=== PATIENT | female | born 1935 | race Asian ===

== ENCOUNTER → 2016-09-03 | Outpatient (CLI) | payer MEDICARE, OTHER ==
[~2016-09-03] MED LIST: AMLO-512 PO; ASPI81TA42 PO; ATOR40TA28 PO; BENZ-26 PO; CARV12 PO; CARV6 PO; CLOP75 PO; COLC0.6T69 PO; HYDR200T4 PO; IPRA4AER IH; MECL-111 PO; MULT-68 PO; NITR.4 SL; PANT40TA25 PO; TIOT185 IH; VALS160T2 PO
== END | disposition home or self-care (01) ==
LOC: LABPV 08:25
PROVIDERS: ATTEND Internal Medicine Cardiovascular Disease
DX: I11.0 Hypertensive heart disease with heart failure (principal); I50.9 Heart failure, unspecified

== ENCOUNTER → 2016-09-06 | Outpatient (CLI) | payer MEDICARE, OTHER | END | disposition home or self-care (01) | LOC: RADPV 12:49 | PROVIDERS: ATTEND Internal Medicine | DX: M17.11 Unilateral primary osteoarthritis, right knee (principal); I70.0 Atherosclerosis of aorta | CPT/HCPCS: 71020 ==

== ENCOUNTER 2016-10-20 10:45 | Inpatient (IN) | payer MEDICARE, OTHER ==
[~2016-10-20] VITALS: Ht 160 cm; Wt 79.8 kg
[~2016-10-20 10:45] MED LIST changes: -CARV12 PO; -PANT40TA25 PO
[2016-10-20 11:19] LABS: BASOPHILS # (AUTO) 0.13 K/uL (0.00-0.20); BASOPHILS % (AUTO) 1.2 % (0.0-2.0); EOSINOPHILS # (AUTO) 0.15 K/uL (0.00-0.70); EOSINOPHILS % (AUTO) 1.39 % (1.0-6.0); HEMATOCRIT 38.1 % (36-46); HEMOGLOBIN 12.8 g/dL (12.0-16.0); LYMPHOCYTES # (AUTO) 2.5 K/uL (1.0-4.8); LYMPHOCYTES % (AUTO) 22.4 % (22.0-44.0); MEAN CORPUSCULAR HEMOGLOBIN 30.7 pg (26.0-34.0); MEAN CORPUSCULAR HGB CONC 33.6 G/dL (31.0-37.0); MEAN CORPUSCULAR VOLUME 92 fL (80-100); MONOCYTES # (AUTO) 0.7 K/uL (0.1-1.0); MONOCYTES % (AUTO) 6.1 % (2.0-9.0); NEUTROPHILS # (AUTO) 7.5 K/uL (1.8-7.7); NEUTROPHILS % (AUTO) 68.9 % (40.0-70.0); PLATELET COUNT (AUTO) 203 K/uL (150-450); RED BLOOD CELL COUNT(AUTO) 4.17 MIL/uL (4.00-5.20); RED CELL DISTRIBUTION WIDTH 14.9 % (11.5-14.5); WHITE BLOOD COUNT (AUTO) 10.9 K/uL (4.5-11.0)
[2016-10-20 11:34] LABS: CALCIUM, TOTAL 8.5 mg/dL (8.8-10.5); CREATININE 2.02 mg/dL (0.60-1.30); POTASSIUM 5.3 mmol/L (3.5-5.1)
[2016-10-20 11:37] LABS: PROTHROMBIN TIME 10.4 SEC (9.4-11.6)
[2016-10-20 11:39] LABS: ALBUMIN 3.4 g/dL (3.4-5.0); BILIRUBIN,TOTAL 0.5 mg/dL (0.1-1.0); TOTAL PROTEIN, SERUM 7.8 g/dL (6.4-8.2)
[2016-10-20 11:46] LABS: APPEARANCE,URINE CLEAR (CLEAR); GLUCOSE, URINE (UA) NEGATIVE (NEGATIVE); KETONES,URINE NEGATIVE (NEGATIVE); LEUKOCYTE ESTERASE ,URINE NEGATIVE (NEGATIVE); OCCULT BLOOD,URINE NEGATIVE (NEGATIVE); PROTEIN,URINE SEE CONFIRM (NEGATIVE)
[2016-10-20 11:47] LABS: ADD UA MICROSCOPIC YES
[2016-10-20 11:49] LABS: SULFOSALICYLIC ACID,URINE 3+ (Negative)
[2016-10-20 11:50] LABS: RBC,URINE None Seen /HPF (0-2)
[2016-10-20 11:51] LABS: RENAL EPITHELIAL CELLS,URINE Few /LPF (None Seen); SQUAMOUS EPITHELIAL CELL,UR Few /LPF (None Seen)
[2016-10-20] MEDS ORDERED: CARV12 PO (12:21)
[2016-10-20] MEDS ORDERED: NITROGLYCERIN 0.4 MG SUBLINGUAL TABLET #25 SL ONE (12:30)
[2016-10-20] MEDS ORDERED: NITROGLYCERIN 2% (1 GM=INCH) PACKET TP ONE (12:30)
[2016-10-20] MEDS ORDERED: ASPIRIN 81 MG CHEWABLE TABLET PO ONE (12:30)
[2016-10-20] MEDS ORDERED: ACETAMINOPHEN 325 MG TABLET PO PRN (14:30)
[2016-10-20] MEDS ORDERED: 0.9% SODIUM CHLORIDE 10 ML SYRINGE IVP PRN (14:30)
[2016-10-20 21:30] VITALS: BP 159/83
[2016-10-20] MEDS ORDERED: NITROGLYCERIN 0.4 MG SUBLINGUAL TABLET #25 SL PRN (21:45)
[2016-10-20] MEDS ORDERED: MORPHINE SULFATE 2 MG/ML SYRINGE IVP PRN (21:45)
[2016-10-20] MEDS ORDERED: MECLIZINE HCL 25 MG TABLET PO PRN (21:45)
[2016-10-20] MEDS ORDERED: VALSARTAN 160 MG TABLET PO SCH (21:45)
[2016-10-20] MEDS ORDERED: COLCHICINE 0.6 MG TABLET PO PRN (21:45)
[2016-10-20] MEDS ORDERED: ALBUTEROL SULFATE/IPRATROPIUM 100-20 MCG/SPRAY 4 GM INHALER IH PRN (21:45)
[2016-10-20] MEDS ORDERED: NITROGLYCERIN 2% (1 GM=INCH) PACKET TP PRN (21:45)
[2016-10-20] MEDS: ATORVASTATIN CALCIUM 40 MG TABLET PO SCH (22:18)
[2016-10-20] MEDS: CARVEDILOL 12.5 MG TABLET PO SCH (22:18)
[2016-10-20] MEDS: HYDROXYCHLOROQUINE SULFATE 200 MG TABLET PO SCH (22:18)
[2016-10-20 23:54] VITALS: BP 130/56
[2016-10-21] MEDS ORDERED: INFLUENZA VIRUS VACCINE QVS 2016-17 (3YR+)/PF 60 MCG/0.5 ML SYRINGE IM ONE (01:00)
[2016-10-21 04:31] VITALS: BP 132/58
[2016-10-21 04:51] LABS: BASOPHILS # (AUTO) 0.03 K/uL (0.00-0.20); BASOPHILS % (AUTO) 0.3 % (0.0-2.0); EOSINOPHILS # (AUTO) 0.17 K/uL (0.00-0.70); EOSINOPHILS % (AUTO) 1.74 % (1.0-6.0); HEMATOCRIT 33.4 % (36-46); HEMOGLOBIN 11.3 g/dL (12.0-16.0); LYMPHOCYTES # (AUTO) 2.5 K/uL (1.0-4.8); LYMPHOCYTES % (AUTO) 25.7 % (22.0-44.0); MEAN CORPUSCULAR HEMOGLOBIN 30.9 pg (26.0-34.0); MEAN CORPUSCULAR HGB CONC 33.8 G/dL (31.0-37.0); MEAN CORPUSCULAR VOLUME 91 fL (80-100); MONOCYTES # (AUTO) 0.6 K/uL (0.1-1.0); MONOCYTES % (AUTO) 6.1 % (2.0-9.0); NEUTROPHILS # (AUTO) 6.3 K/uL (1.8-7.7); NEUTROPHILS % (AUTO) 66.2 % (40.0-70.0); PLATELET COUNT (AUTO) 176 K/uL (150-450); RED BLOOD CELL COUNT(AUTO) 3.66 MIL/uL (4.00-5.20); RED CELL DISTRIBUTION WIDTH 15.2 % (11.5-14.5); WHITE BLOOD COUNT (AUTO) 9.6 K/uL (4.5-11.0)
[2016-10-21 05:05] LABS: ALBUMIN 2.8 g/dL (3.4-5.0); BILIRUBIN,TOTAL 0.4 mg/dL (0.1-1.0); CALCIUM, TOTAL 7.7 mg/dL (8.8-10.5); CHOL/HDL RATIO 4.5 (3.9-5.7); POTASSIUM 4.2 mmol/L (3.5-5.1); TOTAL PROTEIN, SERUM 6.1 g/dL (6.4-8.2)
[2016-10-21 05:31] LABS: CREATININE 1.76 mg/dL (0.60-1.30)
[2016-10-21 07:22] VITALS: BP 164/78
[2016-10-21] MEDS: ASPIRIN 81 MG CHEWABLE TABLET PO SCH (08:53)
[2016-10-21] MEDS: BENZONATATE 100 MG CAPSULE PO PRN (08:53)
[2016-10-21] MEDS: TIOTROPIUM BROMIDE 18 MCG/INH HANDIHALER [5] IH SCH (08:54)
[2016-10-21] MEDS: CARVEDILOL 12.5 MG TABLET PO SCH ×2 (08:54→20:34)
[2016-10-21] MEDS: AmLODIPine BESYLATE 10 MG TABLET PO SCH (08:54)
[2016-10-21] MEDS: HYDROXYCHLOROQUINE SULFATE 200 MG TABLET PO SCH ×2 (08:56→20:34)
[2016-10-21] MEDS ORDERED: ASPIRIN 81 MG EC TABLET PO SCH (09:00)
[2016-10-21 11:54] VITALS: BP 145/56
[2016-10-21 15:31] VITALS: BP 122/88
[2016-10-21 19:29] VITALS: BP 132/72
[2016-10-21] MEDS: ATORVASTATIN CALCIUM 40 MG TABLET PO SCH (20:34)
[2016-10-21 23:28] VITALS: BP 135/56
[2016-10-22 04:26] VITALS: BP 136/59
[2016-10-22 07:45] VITALS: BP 119/52
[2016-10-22 08:15] LABS: BASOPHILS % (AUTO) 0.1 % (0.0-2.0); EOSINOPHILS % (AUTO) 1.7 % (1.0-6.0); HEMATOCRIT 35.3 % (36-46); HEMOGLOBIN 11.7 g/dL (12.0-16.0); LYMPHOCYTES # (AUTO) 2.4 K/uL (1.0-4.8); LYMPHOCYTES % (AUTO) 25.1 % (22.0-44.0); MEAN CORPUSCULAR HEMOGLOBIN 30.5 pg (26.0-34.0); MEAN CORPUSCULAR VOLUME 92 fL (80-100); MONOCYTES # (AUTO) 0.6 K/uL (0.1-1.0); MONOCYTES % (AUTO) 6.3 % (2.0-9.0); NEUTROPHILS # (AUTO) 6.4 K/uL (1.8-7.7); NEUTROPHILS % (AUTO) 66.8 % (40.0-70.0); PLATELET COUNT (AUTO) 182 K/uL (150-450); RED BLOOD CELL COUNT(AUTO) 3.83 MIL/uL (4.00-5.20); RED CELL DISTRIBUTION WIDTH 14.7 % (11.5-14.5); WHITE BLOOD COUNT (AUTO) 9.6 K/uL (4.5-11.0)
[2016-10-22] MEDS: ASPIRIN 81 MG CHEWABLE TABLET PO SCH (08:25)
[2016-10-22] MEDS: CARVEDILOL 12.5 MG TABLET PO SCH ×2 (08:25→20:20)
[2016-10-22] MEDS: AmLODIPine BESYLATE 10 MG TABLET PO SCH (08:25)
[2016-10-22] MEDS: TIOTROPIUM BROMIDE 18 MCG/INH HANDIHALER [5] IH SCH (08:26)
[2016-10-22] MEDS: HYDROXYCHLOROQUINE SULFATE 200 MG TABLET PO SCH (08:29)
[2016-10-22 08:38] LABS: BILIRUBIN,TOTAL 0.4 mg/dL (0.1-1.0); CALCIUM, TOTAL 8.1 mg/dL (8.8-10.5); MAGNESIUM 1.8 mg/dL (1.80-2.40); PHOSPHORUS 3.7 mg/dL (2.5-4.9); POTASSIUM 4.7 mmol/L (3.5-5.1); TOTAL PROTEIN, SERUM 6.7 g/dL (6.4-8.2)
[2016-10-22 08:45] LABS: CREATININE 1.58 mg/dL (0.60-1.30)
[2016-10-22] MEDS: PANTOPRAZOLE SODIUM 40 MG DR TABLET PO SCH (09:39)
[2016-10-22 11:09] LABS: ERYTHROCYTE SEDIMENTATION RATE 40 MM/HR (0-20)
[2016-10-22 11:14] VITALS: BP 136/61
[2016-10-22 15:28] VITALS: BP 149/65
[2016-10-22 19:11] VITALS: BP 147/59
[2016-10-22] MEDS ORDERED: ATORVASTATIN CALCIUM 40 MG TABLET PO SCH (21:00)
[2016-10-22 23:10] VITALS: BP 130/50
[2016-10-23 04:31] VITALS: BP 147/58
[2016-10-23 07:26] VITALS: BP 123/44
[2016-10-23] MEDS: TIOTROPIUM BROMIDE 18 MCG/INH HANDIHALER [5] IH SCH (08:10)
[2016-10-23] MEDS: AmLODIPine BESYLATE 10 MG TABLET PO SCH (08:11)
[2016-10-23] MEDS: CARVEDILOL 12.5 MG TABLET PO SCH (08:11)
[2016-10-23] MEDS: PANTOPRAZOLE SODIUM 40 MG DR TABLET PO SCH (08:11)
[2016-10-23] MEDS: ASPIRIN 81 MG CHEWABLE TABLET PO SCH (08:11)
[2016-10-23] MEDS: BENZONATATE 100 MG CAPSULE PO PRN (08:14)
[2016-10-23 08:32] LABS: IGG (IMMUNOFIXATION) 910 mg/dL (700-1600)
[2016-10-23] MEDS ORDERED: IPRA4AER IH (09:11)
[2016-10-23] MEDS ORDERED: COLC0.6T69 PO (09:17)
[2016-10-23] MEDS ORDERED: MECL-111 PO (09:19)
[2016-10-23] MEDS ORDERED: VALS160T2 PO (09:20)
[2016-10-23] MEDS ORDERED: PANT40TA25 PO (09:22)
[2016-10-24 09:11] LABS: COMPLEMENT C3 156 mg/dL (82-167); COMPLEMENT C4 40 mg/dL (14-44)
[2016-10-29 15:45] LABS: ALBUMIN URINE (ELP24) 80.6 %; ALPHA-1 URINE (ELP24) 0.4 %; ALPHA-2 URINE(ELP24) 1.3 %; BETA URINE(ELP24) 8.6 %; TOTAL PROTEIN URINE 25.8 mg/dL (Not Estab.)
== END 2016-10-23 10:35 | disposition home or self-care (01) | DRG 683 ==
LOC: EMS 10:47 → 5S 19:00
PROVIDERS: ADMIT Internal Medicine; ATTEND Internal Medicine
DX: N17.9 Acute kidney failure, unspecified (principal); I25.110 Atherosclerotic heart disease of native coronary artery with unstable angina pectoris; I69.351 Hemiplegia and hemiparesis following cerebral infarction affecting right dominant side; I25.9 Chronic ischemic heart disease, unspecified; I12.9 Hypertensive chronic kidney disease with stage 1 through stage 4 chronic kidney disease, or unspecified chronic kidney disease; E78.5 Hyperlipidemia, unspecified; M10.9 Gout, unspecified; N18.3 Chronic kidney disease, stage 3 (moderate); E78.00 Pure hypercholesterolemia, unspecified; I70.0 Atherosclerosis of aorta; J44.9 Chronic obstructive pulmonary disease, unspecified; J45.909 Unspecified asthma, uncomplicated; M06.9 Rheumatoid arthritis, unspecified; N28.1 Cyst of kidney, acquired; Z79.899 Other long term (current) drug therapy; Z95.5 Presence of coronary angioplasty implant and graft; Z79.82 Long term (current) use of aspirin; Z88.0 Allergy status to penicillin; Z88.2 Allergy status to sulfonamides; Z88.8 Allergy status to other drugs, medicaments and biological substances
CPT/HCPCS: 76770; 81050; 82575; 82784; 83036; 83540; 83550; 83735; 84100; 84156; 84166; 84300; 84540; 85651; 86160; 86162; 86334; 90471; 93005; 93306; 99285

== ENCOUNTER → 2017-04-03 | Outpatient (CLI) | payer MEDICARE, OTHER ==
[~2017-04-03] MED LIST changes: +CARV12 PO; -CARV6 PO; -CLOP75 PO; -HYDR200T4 PO; +PANT40TA25 PO
== END | disposition home or self-care (01) ==
LOC: RADPV 12:26
PROVIDERS: ATTEND Internal Medicine
DX: M17.11 Unilateral primary osteoarthritis, right knee (principal); M25.461 Effusion, right knee

== ENCOUNTER → 2017-07-04 | Outpatient (CLI) | payer MEDICARE, OTHER ==
[~2017-07-04] MED LIST changes: -BENZ-26 PO; +BENZ-51 PO; +COLC0.6T67 PO; -COLC0.6T69 PO
== END | disposition home or self-care (01) ==
LOC: RADPV 12:47
PROVIDERS: ATTEND Orthopaedic Surgery
DX: M25.471 Effusion, right ankle (principal); Z98.890 Other specified postprocedural states

== ENCOUNTER → 2017-09-05 | Outpatient (CLI) | payer MEDICARE, OTHER ==
[2017-09-05 11:32] LABS: BASOPHILS % (AUTO) 0.7 % (0.0-2.0); HEMATOCRIT 32.5 % (36-46); LYMPHOCYTES # (AUTO) 2.1 K/uL (1.0-4.8); MEAN CORPUSCULAR HEMOGLOBIN 30.6 pg (26.0-34.0); MEAN CORPUSCULAR HGB CONC 33.7 G/dL (31.0-37.0); MEAN CORPUSCULAR VOLUME 91 fL (80-100); MONOCYTES # (AUTO) 0.8 K/uL (0.1-1.0); MONOCYTES % (AUTO) 7.5 % (2.0-9.0); NEUTROPHILS # (AUTO) 7.1 K/uL (1.8-7.7); NEUTROPHILS % (AUTO) 68.8 % (40.0-70.0); PLATELET COUNT (AUTO) 219 K/uL (150-450); RED BLOOD CELL COUNT(AUTO) 3.59 MIL/uL (4.00-5.20); RED CELL DISTRIBUTION WIDTH 14.5 % (11.5-14.5)
[2017-09-05 12:13] LABS: BILIRUBIN,TOTAL 0.4 mg/dL (0.1-1.0); CALCIUM, TOTAL 8.4 mg/dL (8.8-10.5); CHOL/HDL RATIO 4.6 (3.9-5.7); CREATININE 1.85 mg/dL (0.60-1.30); POTASSIUM 4.7 mmol/L (3.5-5.1); THYROID STIMULATING HORMONE 1.91 uIU/mL (0.36-3.74); TOTAL PROTEIN, SERUM 6.6 g/dL (6.4-8.2)
== END | disposition home or self-care (01) ==
LOC: LABPV 10:13
PROVIDERS: ATTEND Internal Medicine
DX: I10 Essential (primary) hypertension (principal); E78.2 Mixed hyperlipidemia
CPT/HCPCS: 84443

== ENCOUNTER 2018-02-26 12:34 | Emergency (ER) | payer MEDICARE, OTHER ==
[~2018-02-26] VITALS: Ht 152.4 cm; Wt 59.1 kg
[~2018-02-26 12:34] MED LIST changes: -MULT-68 PO; -VALS160T2 PO
[2018-02-26 14:05] LABS: BASOPHILS % (AUTO) 0.5 % (0.0-2.0); EOSINOPHILS % (AUTO) 2.4 % (1.0-6.0); HEMATOCRIT 28.7 % (36-46); HEMOGLOBIN 9.9 g/dL (12.0-16.0); LYMPHOCYTES # (AUTO) 1.8 K/uL (1.0-4.8); LYMPHOCYTES % (AUTO) 18.5 % (22.0-44.0); MEAN CORPUSCULAR HEMOGLOBIN 31.5 pg (26.0-34.0); MEAN CORPUSCULAR HGB CONC 34.5 G/dL (31.0-37.0); MEAN CORPUSCULAR VOLUME 91 fL (80-100); MONOCYTES # (AUTO) 0.6 K/uL (0.1-1.0); MONOCYTES % (AUTO) 6.4 % (2.0-9.0); NEUTROPHILS % (AUTO) 72.2 % (40.0-70.0); PLATELET COUNT (AUTO) 220 K/uL (150-450); RED BLOOD CELL COUNT(AUTO) 3.15 MIL/uL (4.00-5.20); RED CELL DISTRIBUTION WIDTH 14.9 % (11.5-14.5)
[2018-02-26 14:14] LABS: CREATININE 2.24 mg/dL (0.60-1.30)
[2018-02-26 14:20] LABS: ALBUMIN 2.4 g/dL (3.4-5.0); BILIRUBIN,TOTAL 0.6 mg/dL (0.1-1.0); TOTAL PROTEIN, SERUM 5.6 g/dL (6.4-8.2)
[2018-02-26] MEDS ORDERED: SODIUM CHLORIDE 0.9% 1,000 ML IV ONE (14:30)
[2018-02-26] MEDS ORDERED: ONDANSETRON HCL 4 MG/2 ML VIAL IVP ONE (14:30)
[2018-02-26 15:01] LABS: APPEARANCE,URINE CLEAR (CLEAR); BILIRUBIN,URINE NEGATIVE (NEGATIVE); GLUCOSE, URINE (UA) 100 mg/dL (NEGATIVE); KETONES,URINE NEGATIVE (NEGATIVE); LEUKOCYTE ESTERASE ,URINE NEGATIVE (NEGATIVE); NITRATE,URINE NEGATIVE (NEGATIVE); OCCULT BLOOD,URINE NEGATIVE (NEGATIVE); PH,URINE 6.5 (5.0-8.0); PROTEIN,URINE SEE CONFIRM (NEGATIVE); UROBILINOGEN,URINE 0.2 mg/dL (<=1.0)
[2018-02-26 15:20] LABS: BACTERIA,URINE Rare /HPF (None Seen); RBC,URINE 0-2 /HPF (0-2); SQUAMOUS EPITHELIAL CELL,UR Few /LPF (None Seen); SULFOSALICYLIC ACID,URINE 2+ (Negative); WBC,URINE 0-2 /HPF (0-5)
[2018-02-26] MEDS ORDERED: KETOROLAC TROMETHAMINE 30 MG/ML VIAL IVP ONE (15:45)
[2018-02-26] MEDS ORDERED: HYOSCYAMINE SULFATE 0.125 MG TAB SL ONE (15:45)
[2018-02-26 17:10] VITALS: BP 169/68
== END 2018-02-26 18:03 | disposition home or self-care (01) ==
LOC: EMS 12:36
DX: R10.816 Epigastric abdominal tenderness (principal); R11.2 Nausea with vomiting, unspecified; I20.9 Angina pectoris, unspecified; J45.909 Unspecified asthma, uncomplicated; J44.9 Chronic obstructive pulmonary disease, unspecified; E78.00 Pure hypercholesterolemia, unspecified; I10 Essential (primary) hypertension; Z86.73 Personal history of transient ischemic attack (TIA), and cerebral infarction without residual deficits; Z87.891 Personal history of nicotine dependence; Z88.0 Allergy status to penicillin; Z88.2 Allergy status to sulfonamides; Z88.1 Allergy status to other antibiotic agents
CPT/HCPCS: 36415; 80053; 81001; 83690; 83880; 84484; 85025; 93005; 96374; 96375; 99285; J1885; J2405; J7030

== ENCOUNTER 2019-05-20 03:04 | Inpatient (IN) | payer MEDICARE, OTHER ==
[~2019-05-20] VITALS: Ht 157.5 cm; Wt 59.4 kg
[~2019-05-20 03:04] MED LIST changes: -AMLO-512 PO; +AMLO10TA7 PO; +ASPI81TA40 PO; -ASPI81TA42 PO; +CIP250 PO; -COLC0.6T67 PO; +COLC0.6T73 PO; -MECL-111 PO; -NITR.4 SL; +NITR0.4T52 SL
[2019-05-20] MEDS ORDERED: HYDR25TA84 PO (03:23)
[2019-05-20] MEDS ORDERED: CLON-570 PO (03:23)
[2019-05-20] MEDS ORDERED: PANT40TA25 PO (03:23)
[2019-05-20] MEDS ORDERED: HYOS-28 PO (03:23)
[2019-05-20 05:20] LABS: BASOPHILS % (AUTO) 0.6 % (0.0-2.0); EOSINOPHILS % (AUTO) 4.6 % (1.0-6.0); HEMOGLOBIN 9.9 g/dL (12.0-16.0); LYMPHOCYTES # (AUTO) 1.8 K/uL (1.0-4.8); LYMPHOCYTES % (AUTO) 22.5 % (22.0-44.0); MEAN CORPUSCULAR HGB CONC 34.1 G/dL (31.0-37.0); MEAN CORPUSCULAR VOLUME 94 fL (80-100); MONOCYTES # (AUTO) 0.6 K/uL (0.1-1.0); MONOCYTES % (AUTO) 8.1 % (2.0-9.0); NEUTROPHILS # (AUTO) 5.1 K/uL (1.8-7.7); NEUTROPHILS % (AUTO) 64.2 % (40.0-70.0); PLATELET COUNT (AUTO) 172 K/uL (150-450); RED CELL DISTRIBUTION WIDTH 15.5 % (11.5-14.5)
[2019-05-20 05:24] LABS: CALCIUM, TOTAL 8.6 mg/dL (8.8-10.5); CREATININE 4.21 mg/dL (0.60-1.30)
[2019-05-20 05:38] LABS: ALBUMIN 3.8 g/dL (3.4-5.0); BILIRUBIN,TOTAL 0.4 mg/dL (0.1-1.0); TOTAL PROTEIN, SERUM 7.1 g/dL (6.4-8.2)
[2019-05-20] MEDS ORDERED: INSULIN REGULAR, HUMAN 100 UNITS/ML IVP ONE ×2 (06:45→17:45)
[2019-05-20] MEDS ORDERED: DEXTROSE 50%-WATER 25 GM/50 ML SYRINGE IVP ONE ×2 (06:45→17:45)
[2019-05-20] MEDS ORDERED: CALCIUM GLUCONATE 0.465 MEQ/ML 10 ML VIAL IVP ONE (06:45)
[2019-05-20 06:55] LABS: PROTHROMBIN TIME 10.3 SEC (9.4-11.6)
[2019-05-20] MEDS ORDERED: 0.9% SODIUM CHLORIDE 10 ML SYRINGE IVP PRN (07:00)
[2019-05-20] MEDS ORDERED: ASPIRIN 325 MG TABLET PO ONE (07:00)
[2019-05-20] MEDS ORDERED: ONDANSETRON HCL 4 MG/2 ML VIAL IVP PRN (07:00)
[2019-05-20] MEDS ORDERED: ACETAMINOPHEN 325 MG TABLET PO PRN (07:00)
[2019-05-20 07:15] LABS: GLUCOSE,POINT OF CARE 78 MG/DL (70-110)
[2019-05-20] MEDS: ALBUTEROL SULFATE 2.5 MG/0.5 ML NEB SOLUTION NEB ONE ×2 (07:35→08:07)
[2019-05-20] MEDS ORDERED: 0.9% SODIUM CHLORIDE 5 ML NEB SOLUTION NEB ONE (07:49)
[2019-05-20 10:14] VITALS: BP 169/67
[2019-05-20 10:25] LABS: MAGNESIUM 1.8 mg/dL (1.80-2.40); PHOSPHORUS 5.3 mg/dL (2.5-4.9)
[2019-05-20] MEDS ORDERED: DEXTROSE 50%-WATER 25 GM/50 ML SYRINGE IVP PRN (11:45)
[2019-05-20] MEDS ORDERED: INSULIN LISPRO 100 UNITS/ML SQ PRN (11:45)
[2019-05-20 11:53] VITALS: BP 143/54
[2019-05-20 14:46] LABS: GLUCOMETER DEV NAME(LOC) 5N.1; GLUCOSE,POINT OF CARE 96 MG/DL (70-110)
[2019-05-20 16:18] VITALS: BP 182/72
[2019-05-20] MEDS: AmLODIPine BESYLATE 5 MG TABLET PO SCH (17:01)
[2019-05-20 17:26] LABS: CALCIUM, TOTAL 8.8 mg/dL (8.8-10.5); CREATININE 3.72 mg/dL (0.60-1.30); MAGNESIUM 1.5 mg/dL (1.80-2.40); PHOSPHORUS 4.3 mg/dL (2.5-4.9)
[2019-05-20 17:31] LABS: POTASSIUM 6.1 mmol/L (3.5-5.1)
[2019-05-20 17:37] LABS: APPEARANCE,URINE CLEAR (CLEAR); BILIRUBIN,URINE NEGATIVE (NEGATIVE); GLUCOSE, URINE (UA) NEGATIVE (NEGATIVE); KETONES,URINE NEGATIVE (NEGATIVE); LEUKOCYTE ESTERASE ,URINE NEGATIVE (NEGATIVE); NITRATE,URINE NEGATIVE (NEGATIVE); OCCULT BLOOD,URINE NEGATIVE (NEGATIVE); PROTEIN,URINE SEE CONFIRM (NEGATIVE); UROBILINOGEN,URINE 0.2 mg/dL (<=1.0)
[2019-05-20] MEDS ORDERED: CALCIUM GLUCONATE 100 MG/ML 10 ML IVP ONE (17:45)
[2019-05-20] MEDS ORDERED: SODIUM POLYSTYRENE SULFONATE 15 GM/60 ML SUSPENSION BOTTLE PO ONE (17:45)
[2019-05-20 17:54] LABS: BACTERIA,URINE Rare /HPF (None Seen); RBC,URINE 0-2 /HPF (0-2); SQUAMOUS EPITHELIAL CELL,UR Few /LPF (None Seen); SULFOSALICYLIC ACID,URINE 3+ (Negative); WBC,URINE 0-2 /HPF (0-5)
[2019-05-20 20:42] VITALS: BP 163/69
[2019-05-21] VITALS (9 sets, daily range): BP systolic 142–180; BP diastolic 63–84
[2019-05-21] MEDS: LABETALOL HCL 5 MG/ML 20 ML VIAL IVP PRN ×3 (05:38→19:47)
[2019-05-21 06:17] LABS: GLUCOMETER DEV NAME(LOC) 5S.1; GLUCOSE,POINT OF CARE 101 MG/DL (70-110)
[2019-05-21 06:17] LABS: GLUCOMETER DEV NAME(LOC) 5S.1; GLUCOSE,POINT OF CARE 79 MG/DL (70-110)
[2019-05-21 06:18] LABS: GLUCOMETER DEV NAME(LOC) 5S.1; GLUCOSE,POINT OF CARE 80 MG/DL (70-110)
[2019-05-21 06:42] LABS: ALBUMIN 3.2 g/dL (3.4-5.0); BILIRUBIN,TOTAL 0.3 mg/dL (0.1-1.0); CALCIUM, TOTAL 8.5 mg/dL (8.8-10.5); CREATININE 3.72 mg/dL (0.60-1.30); MAGNESIUM 1.5 mg/dL (1.80-2.40); PHOSPHORUS 4.7 mg/dL (2.5-4.9); POTASSIUM 4.9 mmol/L (3.5-5.1)
[2019-05-21 07:36] LABS: GLUCOMETER DEV NAME(LOC) 5N.2; GLUCOSE,POINT OF CARE 91 MG/DL (70-110)
[2019-05-21] MEDS: AmLODIPine BESYLATE 5 MG TABLET PO SCH (08:45)
[2019-05-21] MEDS ORDERED: MAGNESIUM SULFATE 1 GM in DEXTROSE 5%-WATER 50 ML IV ONE (10:15)
[2019-05-21] MEDS: SODIUM BICARBONATE 650 MG TABLET PO SCH ×2 (10:21→19:46)
[2019-05-21] MEDS: EPOETIN ALFA 10,000 UNITS/ML VIAL SQ SCH (10:22)
[2019-05-21] MEDS ORDERED: AmLODIPine BESYLATE 5 MG TABLET PO ONE (10:30)
[2019-05-21 10:37] LABS: APPEARANCE,URINE CLEAR (CLEAR); BILIRUBIN,URINE NEGATIVE (NEGATIVE); GLUCOSE, URINE (UA) NEGATIVE (NEGATIVE); KETONES,URINE NEGATIVE (NEGATIVE); LEUKOCYTE ESTERASE ,URINE NEGATIVE (NEGATIVE); NITRATE,URINE NEGATIVE (NEGATIVE); OCCULT BLOOD,URINE TRACE (NEGATIVE); PROTEIN,URINE SEE CONFIRM (NEGATIVE); UROBILINOGEN,URINE 0.2 mg/dL (<=1.0)
[2019-05-21 10:39] LABS: CREATININE,URINE RANDOM 43.2 mg/dL (30.0-125.0); SODIUM,URINE RANDOM 97 mmol/l (20-110); UREA NITROGEN,URINE RANDOM 412 mg/dL (350-1000)
[2019-05-21 11:12] LABS: BACTERIA,URINE None Seen /HPF (None Seen); RBC,URINE 0-2 /HPF (0-2); SQUAMOUS EPITHELIAL CELL,UR Rare /LPF (None Seen); WBC,URINE None Seen /HPF (0-5)
[2019-05-21 13:37] LABS: GLUCOMETER DEV NAME(LOC) 5N.1; GLUCOSE,POINT OF CARE 81 MG/DL (70-110)
[2019-05-21] MEDS ORDERED: 0.9% SODIUM CHLORIDE 10 ML SYRINGE IVP PRN ×2 (14:15)
[2019-05-21] MEDS ORDERED: ALBUTEROL SULFATE 2.5 MG/0.5 ML NEB SOLUTION NEB PRN (14:15)
[2019-05-21] MEDS ORDERED: ONDANSETRON HCL 4 MG/2 ML VIAL IVP PRN (14:15)
[2019-05-21] MEDS ORDERED: IPRATROPIUM BROMIDE 0.5 MG/2.5 ML NEB SOLUTION NEB PRN (14:15)
[2019-05-21] MEDS: PANTOPRAZOLE SODIUM 40 MG DR TABLET PO SCH (15:54)
[2019-05-21] MEDS: HEPARIN SODIUM,PORCINE 5,000 UNITS/ML VIAL SQ SCH (15:54)
[2019-05-21] MEDS: HydrALAZINE HCL 50 MG TABLET PO SCH ×2 (15:54→19:46)
[2019-05-21] MEDS: DOCUSATE SODIUM 250 MG CAPSULE PO SCH ×2 (15:55→21:00)
[2019-05-21] MEDS: SODIUM CHLORIDE 0.45% 1,000 ML IV SCH ×2 (16:30→23:29)
[2019-05-21] MEDS ORDERED: SODIUM CHLORIDE 0.9% 100 ML ONE (19:16)
[2019-05-22] VITALS (11 sets, daily range): BP systolic 149–195; BP diastolic 57–81
[2019-05-22] MEDS: HEPARIN SODIUM,PORCINE 5,000 UNITS/ML VIAL SQ SCH ×2 (01:44→14:25)
[2019-05-22] MEDS: PANTOPRAZOLE SODIUM 40 MG DR TABLET PO SCH (05:20)
[2019-05-22 05:49] LABS: BASOPHILS % (AUTO) 0.6 % (0.0-2.0); EOSINOPHILS % (AUTO) 4.2 % (1.0-6.0); HEMOGLOBIN 8.3 g/dL (12.0-16.0); LYMPHOCYTES # (AUTO) 1.9 K/uL (1.0-4.8); MEAN CORPUSCULAR HEMOGLOBIN 31.3 pg (26.0-34.0); MEAN CORPUSCULAR HGB CONC 33.3 G/dL (31.0-37.0); MEAN CORPUSCULAR VOLUME 94 fL (80-100); MONOCYTES # (AUTO) 0.5 K/uL (0.1-1.0); MONOCYTES % (AUTO) 7.7 % (2.0-9.0); NEUTROPHILS # (AUTO) 3.9 K/uL (1.8-7.7); NEUTROPHILS % (AUTO) 59.5 % (40.0-70.0); PLATELET COUNT (AUTO) 147 K/uL (150-450); RED BLOOD CELL COUNT(AUTO) 2.66 MIL/uL (4.00-5.20); RED CELL DISTRIBUTION WIDTH 15.6 % (11.5-14.5)
[2019-05-22 05:56] LABS: GLUCOMETER DEV NAME(LOC) 5N.2; GLUCOSE,POINT OF CARE 74 MG/DL (70-110)
[2019-05-22 05:56] LABS: GLUCOMETER DEV NAME(LOC) 5N.2; GLUCOSE,POINT OF CARE 110 MG/DL (70-110)
[2019-05-22] MEDS: LABETALOL HCL 5 MG/ML 20 ML VIAL IVP PRN ×2 (06:03→10:36)
[2019-05-22 06:09] LABS: PROTHROMBIN TIME 10.6 SEC (9.4-11.6)
[2019-05-22 06:16] LABS: CALCIUM, TOTAL 8.3 mg/dL (8.8-10.5); CHOL/HDL RATIO 3.8 (3.9-5.7); CREATININE 3.51 mg/dL (0.60-1.30); PHOSPHORUS 4.6 mg/dL (2.5-4.9); POTASSIUM 4.7 mmol/L (3.5-5.1); THYROID STIMULATING HORMONE 1.39 uIU/mL (0.36-3.74)
[2019-05-22 06:34] LABS: % IRON SATURATION 23.5 % (22-44)
[2019-05-22] MEDS: HydrALAZINE HCL 50 MG TABLET PO SCH ×3 (08:24→20:27)
[2019-05-22] MEDS: AmLODIPine BESYLATE 10 MG TABLET PO SCH (08:24)
[2019-05-22] MEDS: DOCUSATE SODIUM 250 MG CAPSULE PO SCH ×3 (08:24→20:27)
[2019-05-22] MEDS: SODIUM BICARBONATE 650 MG TABLET PO SCH (08:24)
[2019-05-22] MEDS: ISOSORBIDE MONONITRATE 30 MG ER TABLET PO SCH (16:17)
[2019-05-22] MEDS: SODIUM CHLORIDE 0.45% 1,000 ML IV SCH (16:20)
[2019-05-22 18:52] LABS: GLUCOMETER DEV NAME(LOC) 5N.1; GLUCOSE,POINT OF CARE 101 MG/DL (70-110)
[2019-05-22] MEDS: ACETAMINOPHEN 325 MG TABLET PO PRN (19:39)
[2019-05-22] MEDS: CARVEDILOL 6.25 MG TABLET PO SCH (20:27)
[2019-05-22] MEDS ORDERED: HydrALAZINE HCL 50 MG TABLET PO SCH (21:00)
[2019-05-23] MEDS: HEPARIN SODIUM,PORCINE 5,000 UNITS/ML VIAL SQ SCH ×2 (01:22→14:56)
[2019-05-23 04:08] VITALS: BP 144/60
[2019-05-23] MEDS: PANTOPRAZOLE SODIUM 40 MG DR TABLET PO SCH (06:20)
[2019-05-23 07:02] LABS: ALBUMIN 2.6 g/dL (3.4-5.0); BILIRUBIN,TOTAL 0.3 mg/dL (0.1-1.0); CREATININE 3.86 mg/dL (0.60-1.30); POTASSIUM 4.4 mmol/L (3.5-5.1); TOTAL PROTEIN, SERUM 5.4 g/dL (6.4-8.2)
[2019-05-23 07:20] VITALS: BP 150/64
[2019-05-23] MEDS: SODIUM BICARBONATE 650 MG TABLET PO SCH (07:44)
[2019-05-23] MEDS: ISOSORBIDE MONONITRATE 30 MG ER TABLET PO SCH (07:44)
[2019-05-23] MEDS: CARVEDILOL 6.25 MG TABLET PO SCH ×2 (07:44→20:28)
[2019-05-23] MEDS: HydrALAZINE HCL 50 MG TABLET PO SCH ×3 (07:44→20:29)
[2019-05-23] MEDS: DOCUSATE SODIUM 250 MG CAPSULE PO SCH ×3 (07:44→20:28)
[2019-05-23] MEDS: AmLODIPine BESYLATE 10 MG TABLET PO SCH (07:45)
[2019-05-23] MEDS: EPOETIN ALFA 10,000 UNITS/ML VIAL SQ SCH (07:45)
[2019-05-23] MEDS: ACETAMINOPHEN 325 MG TABLET PO PRN (07:45)
[2019-05-23 10:31] LABS: GLUCOMETER DEV NAME(LOC) 5S.2A; GLUCOSE,POINT OF CARE 96 MG/DL (70-110)
[2019-05-23 10:31] LABS: GLUCOMETER DEV NAME(LOC) 5S.2A; GLUCOSE,POINT OF CARE 95 MG/DL (70-110)
[2019-05-23] MEDS: SOD FERRIC GLUC COMPLX/SUCROSE 125 MG in SODIUM CHLORIDE 0.9% 100 ML IV SCH (11:22)
[2019-05-23 11:24] VITALS: BP 145/55
[2019-05-23 15:20] VITALS: BP 149/65
[2019-05-23 17:07] LABS: GLUCOMETER DEV NAME(LOC) 5N.2; GLUCOSE,POINT OF CARE 82 MG/DL (70-110)
[2019-05-23 17:07] LABS: GLUCOMETER DEV NAME(LOC) 5N.2; GLUCOSE,POINT OF CARE 93 MG/DL (70-110)
[2019-05-23 17:07] LABS: GLUCOMETER DEV NAME(LOC) 5N.2; GLUCOSE,POINT OF CARE 86 MG/DL (70-110)
[2019-05-23 20:28] VITALS: BP 153/61
[2019-05-23 21:06] LABS: GLUCOMETER DEV NAME(LOC) 5N.2; GLUCOSE,POINT OF CARE 88 MG/DL (70-110)
[2019-05-24] VITALS (7 sets, daily range): BP systolic 128–172; BP diastolic 48–91
[2019-05-24] MEDS: HEPARIN SODIUM,PORCINE 5,000 UNITS/ML VIAL SQ SCH ×2 (02:15→14:46)
[2019-05-24] MEDS: PANTOPRAZOLE SODIUM 40 MG DR TABLET PO SCH (06:29)
[2019-05-24 07:24] LABS: BASOPHILS % (AUTO) 0.6 % (0.0-2.0); EOSINOPHILS % (AUTO) 5.3 % (1.0-6.0); HEMOGLOBIN 8.7 g/dL (12.0-16.0); LYMPHOCYTES # (AUTO) 1.5 K/uL (1.0-4.8); LYMPHOCYTES % (AUTO) 24.1 % (22.0-44.0); MEAN CORPUSCULAR HEMOGLOBIN 31.9 pg (26.0-34.0); MEAN CORPUSCULAR HGB CONC 33.6 G/dL (31.0-37.0); MEAN CORPUSCULAR VOLUME 95 fL (80-100); MONOCYTES # (AUTO) 0.6 K/uL (0.1-1.0); MONOCYTES % (AUTO) 9.2 % (2.0-9.0); NEUTROPHILS # (AUTO) 3.7 K/uL (1.8-7.7); NEUTROPHILS % (AUTO) 60.8 % (40.0-70.0); PLATELET COUNT (AUTO) 155 K/uL (150-450); RED BLOOD CELL COUNT(AUTO) 2.74 MIL/uL (4.00-5.20); RED CELL DISTRIBUTION WIDTH 15.7 % (11.5-14.5)
[2019-05-24 09:20] LABS: BILIRUBIN,TOTAL 0.4 mg/dL (0.1-1.0); CALCIUM, TOTAL 7.9 mg/dL (8.8-10.5); CREATININE 3.74 mg/dL (0.60-1.30); POTASSIUM 4.6 mmol/L (3.5-5.1); TOTAL PROTEIN, SERUM 6.2 g/dL (6.4-8.2)
[2019-05-24] MEDS: SODIUM BICARBONATE 650 MG TABLET PO SCH (10:11)
[2019-05-24] MEDS: HydrALAZINE HCL 50 MG TABLET PO SCH ×3 (10:11→20:12)
[2019-05-24] MEDS: ISOSORBIDE MONONITRATE 30 MG ER TABLET PO SCH (10:11)
[2019-05-24] MEDS: AmLODIPine BESYLATE 10 MG TABLET PO SCH (10:11)
[2019-05-24] MEDS: DOCUSATE SODIUM 250 MG CAPSULE PO SCH ×3 (10:12→20:09)
[2019-05-24] MEDS: CARVEDILOL 6.25 MG TABLET PO SCH ×2 (10:12→20:12)
[2019-05-24] MEDS: SOD FERRIC GLUC COMPLX/SUCROSE 125 MG in SODIUM CHLORIDE 0.9% 100 ML IV SCH (11:23)
[2019-05-24 20:07] LABS: GLUCOMETER DEV NAME(LOC) 5N.2; GLUCOSE,POINT OF CARE 141 MG/DL (70-110)
[2019-05-24 20:07] LABS: GLUCOMETER DEV NAME(LOC) 5N.2; GLUCOSE,POINT OF CARE 104 MG/DL (70-110)
[2019-05-25] MEDS: HEPARIN SODIUM,PORCINE 5,000 UNITS/ML VIAL SQ SCH ×2 (02:13→14:15)
[2019-05-25 04:49] VITALS: BP 173/72
[2019-05-25] MEDS: ACETAMINOPHEN 325 MG TABLET PO PRN ×2 (05:05→10:16)
[2019-05-25] MEDS: LABETALOL HCL 5 MG/ML 20 ML VIAL IVP PRN (05:07)
[2019-05-25] MEDS: PANTOPRAZOLE SODIUM 40 MG DR TABLET PO SCH (05:30)
[2019-05-25 05:31] LABS: GLUCOMETER DEV NAME(LOC) 5S.1; GLUCOSE,POINT OF CARE 105 MG/DL (70-110)
[2019-05-25 05:51] LABS: GLUCOMETER DEV NAME(LOC) 5N.2; GLUCOSE,POINT OF CARE 76 MG/DL (70-110)
[2019-05-25 07:30] LABS: ALBUMIN 2.9 g/dL (3.4-5.0); BILIRUBIN,TOTAL 0.3 mg/dL (0.1-1.0); CALCIUM, TOTAL 8.3 mg/dL (8.8-10.5); CREATININE 3.48 mg/dL (0.60-1.30); POTASSIUM 4.1 mmol/L (3.5-5.1); TOTAL PROTEIN, SERUM 6.1 g/dL (6.4-8.2)
[2019-05-25 08:19] VITALS: BP 174/69
[2019-05-25] MEDS: ISOSORBIDE MONONITRATE 30 MG ER TABLET PO SCH (08:40)
[2019-05-25] MEDS: DOCUSATE SODIUM 250 MG CAPSULE PO SCH (08:40)
[2019-05-25] MEDS: HydrALAZINE HCL 50 MG TABLET PO SCH (08:40)
[2019-05-25] MEDS: CARVEDILOL 6.25 MG TABLET PO SCH (08:40)
[2019-05-25] MEDS: SODIUM BICARBONATE 650 MG TABLET PO SCH (08:40)
[2019-05-25] MEDS: AmLODIPine BESYLATE 10 MG TABLET PO SCH (08:40)
[2019-05-25 09:28] VITALS: BP 142/57
[2019-05-25] MEDS: SOD FERRIC GLUC COMPLX/SUCROSE 125 MG in SODIUM CHLORIDE 0.9% 100 ML IV SCH (11:03)
[2019-05-25 11:47] VITALS: BP 139/53
[2019-05-25] MEDS ORDERED: ISOS60TA4 PO (13:04)
[2019-05-25] MEDS ORDERED: HYDR-4174 PO (13:04)
[2019-05-25] MEDS ORDERED: CARV6.2579 PO (13:04)
[2019-05-26 00:16] LABS: GLUCOMETER DEV NAME(LOC) 5S.1; GLUCOSE,POINT OF CARE 104 MG/DL (70-110)
== END 2019-05-25 15:05 | disposition home or self-care (01) | DRG 683 ==
LOC: EMS 03:04 → 5S 06:30
PROVIDERS: ADMIT Internal Medicine; ATTEND Internal Medicine
DX: N17.9 Acute kidney failure, unspecified (principal); I50.32 Chronic diastolic (congestive) heart failure; I13.0 Hypertensive heart and chronic kidney disease with heart failure and stage 1 through stage 4 chronic kidney disease, or unspecified chronic kidney disease; E87.2 Acidosis; E87.5 Hyperkalemia; E78.00 Pure hypercholesterolemia, unspecified; N18.3 Chronic kidney disease, stage 3 (moderate); D69.6 Thrombocytopenia, unspecified; D63.1 Anemia in chronic kidney disease; E78.5 Hyperlipidemia, unspecified; I25.10 Atherosclerotic heart disease of native coronary artery without angina pectoris; K80.20 Calculus of gallbladder without cholecystitis without obstruction; M19.90 Unspecified osteoarthritis, unspecified site; I35.0 Nonrheumatic aortic (valve) stenosis; J44.9 Chronic obstructive pulmonary disease, unspecified; K21.9 Gastro-esophageal reflux disease without esophagitis; M10.9 Gout, unspecified; Z79.899 Other long term (current) drug therapy; Z87.891 Personal history of nicotine dependence; Z88.0 Allergy status to penicillin; Z95.5 Presence of coronary angioplasty implant and graft; Z88.2 Allergy status to sulfonamides; Z86.73 Personal history of transient ischemic attack (TIA), and cerebral infarction without residual deficits
CPT/HCPCS: 76770; 82570; 83036; 83540; 83550; 83735; 84100; 84132; 84300; 84443; 84540; 87040; 87430; 93005; 93306; 94640; 96374; 96375; 97116; 97162; 97166; 97535; 99291; G0378; J0610; J0885; J1644; J1815; J2916; J3475; J3490; J7050; J7060

== ENCOUNTER 2019-07-15 00:09 | Inpatient (IN) | payer MEDICARE, OTHER ==
[~2019-07-15] VITALS: Ht 152.4 cm; Wt 58.7 kg
[~2019-07-15 00:09] MED LIST changes: -ASPI81TA40 PO; -CARV12 PO; +CARV6.2579 PO; -CIP250 PO; -COLC0.6T73 PO; +HYDR-4174 PO; +HYOS-28 PO; -NITR0.4T52 SL
[2019-07-15] MEDS ORDERED: BENZ200C53 PO (00:30)
[2019-07-15] MEDS ORDERED: PRED-572 PO (00:31)
[2019-07-15] MEDS ORDERED: ALBUTEROL SULFATE 2.5 MG/0.5 ML NEB SOLUTION NEB ONE ×2 (00:45→09:15)
[2019-07-15] MEDS ORDERED: IPRATROPIUM BROMIDE 0.5 MG/2.5 ML NEB SOLUTION NEB ONE ×2 (00:45→09:15)
[2019-07-15 01:08] LABS: BASOPHILS % (AUTO) 0.3 % (0.0-2.0); EOSINOPHILS % (AUTO) 0.7 % (1.0-6.0); HEMATOCRIT 24.3 % (36-46); HEMOGLOBIN 8.2 g/dL (12.0-16.0); LYMPHOCYTES # (AUTO) 0.8 K/uL (1.0-4.8); MEAN CORPUSCULAR HEMOGLOBIN 33.3 pg (26.0-34.0); MEAN CORPUSCULAR HGB CONC 33.7 G/dL (31.0-37.0); MEAN CORPUSCULAR VOLUME 99 fL (80-100); MONOCYTES # (AUTO) 0.4 K/uL (0.1-1.0); MONOCYTES % (AUTO) 3.7 % (2.0-9.0); NEUTROPHILS # (AUTO) 9.9 K/uL (1.8-7.7); PLATELET COUNT (AUTO) 140 K/uL (150-450); RED BLOOD CELL COUNT(AUTO) 2.46 MIL/uL (4.00-5.20); RED CELL DISTRIBUTION WIDTH 14.2 % (11.5-14.5)
[2019-07-15 01:10] LABS: NEUTROPHILS % (AUTO) 88.3 % (40.0-70.0)
[2019-07-15 01:17] LABS: CALCIUM, TOTAL 8.4 mg/dL (8.8-10.5); CREATININE 5.21 mg/dL (0.60-1.30); POTASSIUM 5.4 mmol/L (3.5-5.1)
[2019-07-15 01:22] LABS: ALBUMIN 3.2 g/dL (3.4-5.0); BILIRUBIN,TOTAL 0.7 mg/dL (0.1-1.0); TOTAL PROTEIN, SERUM 6.8 g/dL (6.4-8.2)
[2019-07-15] MEDS ORDERED: ACETAMINOPHEN 325 MG TABLET PO ONE (02:00)
[2019-07-15] MEDS ORDERED: SODIUM CHLORIDE 0.9% 1,800 ML IV ONE (02:28)
[2019-07-15 03:13] LABS: INR 1.1 (0.9-1.1); PROTHROMBIN TIME 10.7 SEC (9.4-11.6)
[2019-07-15] MEDS ORDERED: CLINDAMYCIN 300 MG/D5% WATER 50 ML IV ONE (06:00)
[2019-07-15] MEDS ORDERED: ONDANSETRON HCL 4 MG/2 ML VIAL IVP PRN ×2 (06:00→15:15)
[2019-07-15] MEDS ORDERED: *CLINICAL-LEVOFLOXACIN IVPB DOSING CLINICAL ONE ×2 (06:00→15:15)
[2019-07-15] MEDS ORDERED: VANCOMYCIN HCL 1.25 GM in DEXTROSE 5%-WATER 250 ML IV ONE (06:00)
[2019-07-15] MEDS ORDERED: ACETAMINOPHEN 325 MG TABLET PO PRN (06:00)
[2019-07-15] MEDS ORDERED: LEVOFLOXACIN 500 MG/D5% WATER 100 ML IV ONE (06:30)
[2019-07-15 08:01] LABS: APPEARANCE,URINE CLEAR (CLEAR); BILIRUBIN,URINE NEGATIVE (NEGATIVE); GLUCOSE, URINE (UA) NEGATIVE (NEGATIVE); KETONES,URINE NEGATIVE (NEGATIVE); LEUKOCYTE ESTERASE ,URINE NEGATIVE (NEGATIVE); NITRATE,URINE NEGATIVE (NEGATIVE); OCCULT BLOOD,URINE NEGATIVE (NEGATIVE); PROTEIN,URINE SEE CONFIRM (NEGATIVE); UROBILINOGEN,URINE 0.2 mg/dL (<=1.0)
[2019-07-15 08:10] LABS: SULFOSALICYLIC ACID,URINE 3+ (Negative)
[2019-07-15 08:11] LABS: BACTERIA,URINE None Seen /HPF (None Seen); FINE GRANULAR CASTS,URINE 0-2 /LPF (None Seen); RBC,URINE 0-2 /HPF (0-2); RENAL EPITHELIAL CELLS,URINE Moderate /LPF (None Seen); SQUAMOUS EPITHELIAL CELL,UR Few /LPF (None Seen); WBC,URINE 0-2 /HPF (0-5)
[2019-07-15] MEDS ORDERED: ALBUTEROL SULFATE 2.5 MG/0.5 ML NEB SOLUTION NEB PRN ×2 (09:00→15:15)
[2019-07-15] MEDS ORDERED: IPRATROPIUM BROMIDE 0.5 MG/2.5 ML NEB SOLUTION NEB PRN ×2 (09:00→15:15)
[2019-07-15] MEDS ORDERED: 0.9% SODIUM CHLORIDE 5 ML NEB SOLUTION NEB ONE ×2 (09:29→09:37)
[2019-07-15] MEDS ORDERED: 0.9% SODIUM CHLORIDE 15 ML NEB SOLUTION NEB ONE (09:37)
[2019-07-15 13:44] VITALS: BP 158/56
[2019-07-15] MEDS ORDERED: FentaNYL CITRATE-PF 100 MCG/2 ML VIAL ONE (13:53)
[2019-07-15] MEDS ORDERED: MIDAZOLAM HCL 2 MG/2 ML VIAL ONE (13:54)
[2019-07-15] MEDS ORDERED: HEPARIN SODIUM,PORCINE 1,000 UNITS/ML 10 ML VIAL ONE (13:55)
[2019-07-15] MEDS ORDERED: HEPARIN SODIUM 1000 UNITS/NS 500 ML ONE (13:56)
[2019-07-15] MEDS ORDERED: LIDOCAINE 1%/EPI 1:200,000/PF 10 ML VIAL ONE (13:56)
[2019-07-15] MEDS ORDERED: NALOXONE HCL 0.4 MG/ML VIAL ONE (13:57)
[2019-07-15] MEDS ORDERED: FUROSEMIDE 20 MG/2 ML VIAL IVP ONE (15:15)
[2019-07-15] MEDS ORDERED: SODIUM POLYSTYRENE SULFONATE 15 GM/60 ML SUSPENSION BOTTLE PO ONE (15:15)
[2019-07-15] MEDS ORDERED: MAGNESIUM HYDROXIDE SUSPENSION 30 ML UDCUP PO PRN (15:15)
[2019-07-15] MEDS ORDERED: MORPHINE SULFATE 2 MG/ML SYRINGE IVP PRN (15:15)
[2019-07-15] MEDS ORDERED: BISACODYL 10 MG RECTAL RECTAL SUPPOSITORY PR PRN (15:15)
[2019-07-15] MEDS ORDERED: HYDROCODONE/ACETAMINOPHEN 5-325 MG TABLET PO PRN (15:15)
[2019-07-15] MEDS ORDERED: ZOLPIDEM TARTRATE 5 MG TABLET PO PRN (15:15)
[2019-07-15] MEDS: BENZONATATE 100 MG CAPSULE PO SCH ×2 (15:27→20:48)
[2019-07-15] MEDS ORDERED: ALPRAZolam 0.5 MG TABLET PO ONE (15:30)
[2019-07-15] MEDS ORDERED: SODIUM BICARBONATE [ADULT] 8.4% 50 MEQ/50 ML SYRINGE IVP ONE (15:30)
[2019-07-15 15:38] VITALS: BP 146/82
[2019-07-15] MEDS ORDERED: SODIUM CHLORIDE 0.9% 500 ML IV ONE (15:39)
[2019-07-15] MEDS: HydrALAZINE HCL 50 MG TABLET PO SCH ×2 (16:00→20:48)
[2019-07-15] MEDS ORDERED: BENZONATATE 100 MG CAPSULE PO SCH (16:00)
[2019-07-15 16:11] LABS: ABG A-A DIFF O2 105.9 mmHg (10-20.0); ABG BASE EXCESS -17.2 mmol/L (-2.0-3.0); ABG CARBOXYHEMOGLOBIN 0.4 % (0.0-1.5); ABG HCO3 12.4 mmol/L (22.0-26.0); ABG METHEMOGLOBIN 0.3 % (0.0-1.5); ABG OXYGEN CONTENT 11.9 mL/dL (15.0-23.0); ABG OXYGEN SATURATION 93.2 % (95.0-98.0); ABG OXYHEMOGLOBIN 92.5 % (94.0-100.0); ABG PCO2 20 mmHg (35-45); ABG PH 7.291 (7.35-7.450); ABG TOTAL HEMOGLOBIN 9.1 G/dL (12.0-18.0); PO2, ARTERIAL BG 70.3 mmHg (71.0-79.0); SITE, BLOOD GAS LFT RADIAL; SOURCE, BLOOD GAS ARTERIAL; TEMPERATURE, FAHRENHEIT, BG 98.6 FAHREN (96.0-98.6)
[2019-07-15 16:12] LABS: O2 DEVICE,BLOOD GAS CANNULA (ROOM AIR)
[2019-07-15] MEDS: HEPARIN SODIUM,PORCINE 5,000 UNITS/ML VIAL SQ SCH (16:17)
[2019-07-15] MEDS: FUROSEMIDE 100 MG/10 ML VIAL IVP SCH ×2 (16:17→20:48)
[2019-07-15] MEDS: AZITHROMYCIN 500 MG/NS 250 ML IV SCH (16:18)
[2019-07-15] MEDS: ACETAMINOPHEN 325 MG TABLET PO PRN (17:37)
[2019-07-15] MEDS: MethylPREDNISolone SOD SUCC 125 MG/2 ML VIAL IVP SCH (17:55)
[2019-07-15] MEDS ORDERED: INFLUENZA VIRUS VACCINE QVS 2019-20 (3YR+)/PF 60 MCG/0.5 ML SYRINGE IM ONE (18:00)
[2019-07-15] MEDS: ALBUTEROL SULFATE 2.5 MG/0.5 ML NEB SOLUTION NEB SCH (19:45)
[2019-07-15] MEDS: IPRATROPIUM BROMIDE 0.5 MG/2.5 ML NEB SOLUTION NEB SCH (19:45)
[2019-07-15 19:52] VITALS: BP 146/73
[2019-07-15] MEDS: DOCUSATE SODIUM 100 MG CAPSULE PO SCH (20:47)
[2019-07-15] MEDS: GuaiFENesin SR 600 MG ER TABLET PO SCH (20:48)
[2019-07-15] MEDS: CARVEDILOL 6.25 MG TABLET PO SCH (20:48)
[2019-07-15] MEDS: ATORVASTATIN CALCIUM 40 MG TABLET PO SCH (20:48)
[2019-07-15] MEDS ORDERED: FUROSEMIDE 100 MG/10 ML VIAL IVP SCH (21:00)
[2019-07-15] MEDS ORDERED: FUROSEMIDE 20 MG/2 ML VIAL IVP SCH (21:00)
[2019-07-15 23:47] VITALS: BP 138/59
[2019-07-16] MEDS: MethylPREDNISolone SOD SUCC 125 MG/2 ML VIAL IVP SCH ×4 (00:58→17:51)
[2019-07-16] MEDS: IPRATROPIUM BROMIDE 0.5 MG/2.5 ML NEB SOLUTION NEB SCH ×4 (02:29→21:05)
[2019-07-16] MEDS: ALBUTEROL SULFATE 2.5 MG/0.5 ML NEB SOLUTION NEB SCH ×4 (02:29→21:05)
[2019-07-16 05:08] VITALS: BP 136/61
[2019-07-16 06:26] LABS: EOSINOPHILS % (AUTO) 0 % (1.0-6.0); HEMATOCRIT 23.3 % (36-46); HEMOGLOBIN 7.9 g/dL (12.0-16.0); LYMPHOCYTES # (AUTO) 0.6 K/uL (1.0-4.8); LYMPHOCYTES % (AUTO) 14.5 % (22.0-44.0); MEAN CORPUSCULAR HEMOGLOBIN 33.2 pg (26.0-34.0); MEAN CORPUSCULAR VOLUME 98 fL (80-100); MONOCYTES % (AUTO) 0.9 % (2.0-9.0); NEUTROPHILS # (AUTO) 3.7 K/uL (1.8-7.7); NEUTROPHILS % (AUTO) 84.6 % (40.0-70.0); PLATELET COUNT (AUTO) 152 K/uL (150-450); RED BLOOD CELL COUNT(AUTO) 2.39 MIL/uL (4.00-5.20); RED CELL DISTRIBUTION WIDTH 14.1 % (11.5-14.5)
[2019-07-16 06:48] LABS: CALCIUM, TOTAL 8.3 mg/dL (8.8-10.5); CREATININE 5.32 mg/dL (0.60-1.30); POTASSIUM 5.5 mmol/L (3.5-5.1)
[2019-07-16 07:35] VITALS: BP 130/63
[2019-07-16] MEDS: HEPARIN SODIUM,PORCINE 5,000 UNITS/ML VIAL SQ SCH ×3 (08:00→15:20)
[2019-07-16] MEDS: FUROSEMIDE 100 MG/10 ML VIAL IVP SCH ×2 (08:20→20:41)
[2019-07-16] MEDS: BENZONATATE 100 MG CAPSULE PO SCH ×3 (09:00→20:40)
[2019-07-16] MEDS: DOCUSATE SODIUM 100 MG CAPSULE PO SCH ×2 (09:00→20:40)
[2019-07-16] MEDS: AmLODIPine BESYLATE 10 MG TABLET PO SCH (09:00)
[2019-07-16] MEDS: GuaiFENesin SR 600 MG ER TABLET PO SCH ×2 (09:00→20:40)
[2019-07-16] MEDS: HydrALAZINE HCL 50 MG TABLET PO SCH ×3 (09:00→19:43)
[2019-07-16] MEDS: CARVEDILOL 6.25 MG TABLET PO SCH ×2 (09:00→20:40)
[2019-07-16] MEDS: PANTOPRAZOLE SODIUM 40 MG DR TABLET PO SCH (09:00)
[2019-07-16] MEDS ORDERED: FentaNYL CITRATE-PF 100 MCG/2 ML VIAL ONE (10:27)
[2019-07-16] MEDS ORDERED: MIDAZOLAM HCL 2 MG/2 ML VIAL ONE (10:28)
[2019-07-16] MEDS ORDERED: FLUMAZENIL 0.1 MG/ML 5 ML VIAL IVP ONE (10:28)
[2019-07-16] MEDS ORDERED: NALOXONE HCL 0.4 MG/ML VIAL ONE (10:28)
[2019-07-16] MEDS ORDERED: HEPARIN SODIUM,PORCINE 1,000 UNITS/ML 10 ML VIAL ONE (10:35)
[2019-07-16] MEDS ORDERED: LIDOCAINE/PF 1% 30 ML VIAL ONE (10:36)
[2019-07-16] MEDS ORDERED: HEPARIN SODIUM 1000 UNITS/NS 500 ML ONE (10:36)
[2019-07-16] MEDS: -EPOGEN NOTE- MISC SCH (10:38)
[2019-07-16 11:50] VITALS: BP 144/73
[2019-07-16] MEDS: ACETAMINOPHEN 325 MG TABLET PO PRN (13:07)
[2019-07-16] MEDS ORDERED: BENZOCAINE/MENTHOL LOZENGE PO PRN (13:30)
[2019-07-16] MEDS ORDERED: DEXTROSE 50%-WATER 25 GM/50 ML SYRINGE IVP PRN (14:00)
[2019-07-16] MEDS: AZITHROMYCIN 500 MG/NS 250 ML IV SCH (15:19)
[2019-07-16 15:52] VITALS: BP 157/80
[2019-07-16] MEDS ORDERED: SODIUM CHLORIDE 0.9% 2,000 ML ONE (17:05)
[2019-07-16] MEDS ORDERED: MANNITOL 25%-12.5 GM/50 ML VIAL IVP PRN (18:30)
[2019-07-16] MEDS ORDERED: HEPARIN SODIUM,PORCINE 1,000 UNITS/ML VIAL IVP ONE ×2 (18:30)
[2019-07-16 19:22] LABS: GLUCOMETER DEV NAME(LOC) 5N.2; GLUCOSE,POINT OF CARE 134 MG/DL (70-110)
[2019-07-16] MEDS: ATORVASTATIN CALCIUM 40 MG TABLET PO SCH (20:40)
[2019-07-16] MEDS ORDERED: 0.9% SODIUM CHLORIDE 5 ML NEB SOLUTION NEB ONE (20:50)
[2019-07-16 22:50] LABS: GLUCOMETER DEV NAME(LOC) 5S.2A; GLUCOSE,POINT OF CARE 133 MG/DL (70-110)
[2019-07-16 23:46] VITALS: BP 158/64
[2019-07-17] MEDS: MethylPREDNISolone SOD SUCC 125 MG/2 ML VIAL IVP SCH ×4 (01:24→19:03)
[2019-07-17] MEDS: ALBUTEROL SULFATE 2.5 MG/0.5 ML NEB SOLUTION NEB SCH ×4 (01:52→20:20)
[2019-07-17] MEDS: IPRATROPIUM BROMIDE 0.5 MG/2.5 ML NEB SOLUTION NEB SCH ×4 (01:53→20:19)
[2019-07-17] MEDS: ACETAMINOPHEN 325 MG TABLET PO PRN ×2 (03:24→09:33)
[2019-07-17 04:32] VITALS: BP 151/78
[2019-07-17 07:01] LABS: BASOPHILS % (AUTO) 0.1 % (0.0-2.0); EOSINOPHILS % (AUTO) 0 % (1.0-6.0); HEMATOCRIT 24.8 % (36-46); HEMOGLOBIN 8.5 g/dL (12.0-16.0); LYMPHOCYTES # (AUTO) 0.7 K/uL (1.0-4.8); LYMPHOCYTES % (AUTO) 8.2 % (22.0-44.0); MEAN CORPUSCULAR HEMOGLOBIN 32.9 pg (26.0-34.0); MEAN CORPUSCULAR HGB CONC 34.4 G/dL (31.0-37.0); MEAN CORPUSCULAR VOLUME 96 fL (80-100); MONOCYTES # (AUTO) 0.3 K/uL (0.1-1.0); MONOCYTES % (AUTO) 3.1 % (2.0-9.0); NEUTROPHILS # (AUTO) 7.5 K/uL (1.8-7.7); PLATELET COUNT (AUTO) 174 K/uL (150-450); RED CELL DISTRIBUTION WIDTH 13.6 % (11.5-14.5)
[2019-07-17 07:07] LABS: CALCIUM, TOTAL 7.5 mg/dL (8.8-10.5); CREATININE 3.67 mg/dL (0.60-1.30); PHOSPHORUS 3.5 mg/dL (2.5-4.9); POTASSIUM 4.2 mmol/L (3.5-5.1)
[2019-07-17 07:08] LABS: INR 1.1 (0.9-1.1); PROTHROMBIN TIME 11.4 SEC (9.4-11.6)
[2019-07-17 07:10] LABS: NEUTROPHILS % (AUTO) 88.6 % (40.0-70.0)
[2019-07-17] MEDS: HEPARIN SODIUM,PORCINE 5,000 UNITS/ML VIAL SQ SCH ×3 (08:00→16:00)
[2019-07-17 08:07] VITALS: BP 153/55
[2019-07-17] MEDS: PANTOPRAZOLE SODIUM 40 MG DR TABLET PO SCH (09:00)
[2019-07-17] MEDS: AmLODIPine BESYLATE 10 MG TABLET PO SCH (09:00)
[2019-07-17] MEDS: DOCUSATE SODIUM 100 MG CAPSULE PO SCH ×2 (09:00→20:12)
[2019-07-17] MEDS: CARVEDILOL 6.25 MG TABLET PO SCH ×2 (09:00→20:12)
[2019-07-17] MEDS: BENZONATATE 100 MG CAPSULE PO SCH ×3 (09:00→20:12)
[2019-07-17] MEDS: HydrALAZINE HCL 50 MG TABLET PO SCH ×4 (09:00→20:11)
[2019-07-17] MEDS: FUROSEMIDE 100 MG/10 ML VIAL IVP SCH (09:00)
[2019-07-17] MEDS: GuaiFENesin SR 600 MG ER TABLET PO SCH ×2 (09:00→20:12)
[2019-07-17] MEDS: -EPOGEN NOTE- MISC SCH (09:02)
[2019-07-17 09:27] LABS: INFLUENZA TYPE A NEGATIVE FOR TYPE A (NEGATIVE); INFLUENZA TYPE B NEGATIVE FOR TYPE B (NEGATIVE)
[2019-07-17 11:03] VITALS: BP 182/76
[2019-07-17] MEDS: LOSARTAN POTASSIUM 25 MG TABLET PO SCH (12:00)
[2019-07-17 12:40] LABS: GLUCOMETER DEV NAME(LOC) 5N.2; GLUCOSE,POINT OF CARE 130 MG/DL (70-110)
[2019-07-17] MEDS: DEXTROSE 5%-0.9% SODIUM CHL 1,000 ML IV SCH (12:42)
[2019-07-17] MEDS ORDERED: LIDOCAINE/PF 1% 30 ML VIAL ONE (13:11)
[2019-07-17] MEDS ORDERED: SODIUM CHLORIDE 0.9% 0 ML IV ONE (13:11)
[2019-07-17] MEDS ORDERED: HEPARIN SODIUM,PORCINE 5,000 UNITS/ML VIAL ONE (13:11)
[2019-07-17] MEDS ORDERED: SODIUM CHLORIDE 0.9% 10 ML ONE (13:11)
[2019-07-17] MEDS ORDERED: BACITRACIN 50,000 UNITS/VIAL ONE (13:12)
[2019-07-17] MEDS ORDERED: HEPARIN SODIUM,PORCINE 1,000 UNITS/ML VIAL IVP ONE ×2 (14:36→17:07)
[2019-07-17] MEDS ORDERED: FentaNYL CITRATE-PF 100 MCG/2 ML VIAL IVP PRN (14:45)
[2019-07-17] MEDS ORDERED: MEPERIDINE-PF 25 MG/ML VIAL IVP PRN (14:45)
[2019-07-17] MEDS ORDERED: HYDROmorphone 2 MG/ML SYRINGE IVP PRN (14:45)
[2019-07-17] MEDS ORDERED: LEVOFLOXACIN 250 MG/D5% WATER 50 ML IV SCH (15:00)
[2019-07-17] MEDS: AZITHROMYCIN 500 MG/NS 250 ML IV SCH (15:15)
[2019-07-17] MEDS ORDERED: VANCOMYCIN HCL 1 GM/VIAL ONE (15:16)
[2019-07-17] MEDS ORDERED: SODIUM CHLORIDE 0.9% 100 ML ONE (15:20)
[2019-07-17] MEDS ORDERED: SODIUM CHLORIDE 0.9% 1,000 ML ONE (15:30)
[2019-07-17] MEDS ORDERED: HEPARIN SODIUM 1000 UNITS/NS 0 ML ONE (15:38)
[2019-07-17 18:18] LABS: GLUCOMETER DEV NAME(LOC) 5S.2A; GLUCOSE,POINT OF CARE 140 MG/DL (70-110)
[2019-07-17] MEDS: EPOETIN ALFA 10,000 UNITS/ML 2 ML VIAL SQ PRN (19:03)
[2019-07-17] MEDS: CefTRIAXone 1 GM/DEXTROSE 50 ML IV SCH (19:03)
[2019-07-17 19:08] VITALS: BP 160/64
[2019-07-17] MEDS: ATORVASTATIN CALCIUM 40 MG TABLET PO SCH (20:12)
[2019-07-17] MEDS: OXYGEN THERAPY IH SCH (20:20)
[2019-07-17 20:59] LABS: GLUCOMETER DEV NAME(LOC) 5S.2A; GLUCOSE,POINT OF CARE 118 MG/DL (70-110)
[2019-07-17] MEDS: INSULIN LISPRO 100 UNITS/ML SQ PRN (22:04)
[2019-07-17 23:09] LABS: GLUCOMETER DEV NAME(LOC) 5N.2; GLUCOSE,POINT OF CARE 168 MG/DL (70-110)
[2019-07-18 00:13] VITALS: BP 145/75
[2019-07-18] MEDS: MethylPREDNISolone SOD SUCC 125 MG/2 ML VIAL IVP SCH ×3 (00:21→11:05)
[2019-07-18] MEDS: IPRATROPIUM BROMIDE 0.5 MG/2.5 ML NEB SOLUTION NEB SCH ×4 (01:58→19:32)
[2019-07-18] MEDS: ALBUTEROL SULFATE 2.5 MG/0.5 ML NEB SOLUTION NEB SCH ×4 (01:59→19:32)
[2019-07-18 05:04] VITALS: BP 156/67
[2019-07-18] MEDS ORDERED: PROPOFOL 1% 20 ML VIAL IVP ONE (05:35)
[2019-07-18] MEDS ORDERED: HEPARIN SODIUM,PORCINE 1,000 UNITS/ML 10 ML VIAL IVP ONE (05:35)
[2019-07-18] MEDS ORDERED: KETAMINE HCL 50 MG/ML 10 ML VIAL IVP ONE (05:39)
[2019-07-18] MEDS ORDERED: FentaNYL CITRATE-PF 100 MCG/2 ML VIAL IVP ONE (05:39)
[2019-07-18 07:02] LABS: GLUCOMETER DEV NAME(LOC) 5N.2; GLUCOSE,POINT OF CARE 133 MG/DL (70-110)
[2019-07-18 07:49] LABS: BASOPHILS % (AUTO) 0.1 % (0.0-2.0); EOSINOPHILS % (AUTO) 0 % (1.0-6.0); HEMATOCRIT 25.4 % (36-46); HEMOGLOBIN 8.8 g/dL (12.0-16.0); LYMPHOCYTES # (AUTO) 0.7 K/uL (1.0-4.8); LYMPHOCYTES % (AUTO) 9.1 % (22.0-44.0); MEAN CORPUSCULAR HEMOGLOBIN 33.2 pg (26.0-34.0); MEAN CORPUSCULAR HGB CONC 34.8 G/dL (31.0-37.0); MEAN CORPUSCULAR VOLUME 95 fL (80-100); MONOCYTES # (AUTO) 0.3 K/uL (0.1-1.0); MONOCYTES % (AUTO) 3.8 % (2.0-9.0); NEUTROPHILS # (AUTO) 7.1 K/uL (1.8-7.7); PLATELET COUNT (AUTO) 169 K/uL (150-450); RED BLOOD CELL COUNT(AUTO) 2.67 MIL/uL (4.00-5.20); RED CELL DISTRIBUTION WIDTH 13.8 % (11.5-14.5)
[2019-07-18] MEDS: DEXTROSE 5%-0.9% SODIUM CHL 1,000 ML IV SCH (08:00)
[2019-07-18 08:02] VITALS: BP 158/71
[2019-07-18 08:08] LABS: CREATININE 3.41 mg/dL (0.60-1.30); POTASSIUM 4.1 mmol/L (3.5-5.1)
[2019-07-18] MEDS: PANTOPRAZOLE SODIUM 40 MG DR TABLET PO SCH (08:32)
[2019-07-18] MEDS: LOSARTAN POTASSIUM 25 MG TABLET PO SCH (08:32)
[2019-07-18] MEDS: HydrALAZINE HCL 50 MG TABLET PO SCH ×3 (08:32→21:35)
[2019-07-18] MEDS: DOCUSATE SODIUM 100 MG CAPSULE PO SCH ×2 (08:32→21:35)
[2019-07-18] MEDS: BENZONATATE 100 MG CAPSULE PO SCH ×3 (08:32→21:35)
[2019-07-18] MEDS: HEPARIN SODIUM,PORCINE 5,000 UNITS/ML VIAL SQ SCH ×3 (08:34→15:21)
[2019-07-18] MEDS: GuaiFENesin SR 600 MG ER TABLET PO SCH ×2 (08:35→21:35)
[2019-07-18] MEDS: -EPOGEN NOTE- MISC SCH (08:35)
[2019-07-18] MEDS: OXYGEN THERAPY IH SCH ×2 (08:35→21:35)
[2019-07-18] MEDS: CARVEDILOL 6.25 MG TABLET PO SCH ×2 (11:05→21:36)
[2019-07-18] MEDS: AmLODIPine BESYLATE 10 MG TABLET PO SCH (11:05)
[2019-07-18] MEDS: INSULIN LISPRO 100 UNITS/ML SQ PRN (11:12)
[2019-07-18 11:52] VITALS: BP 147/54
[2019-07-18] MEDS: CefTRIAXone 1 GM/DEXTROSE 50 ML IV SCH (15:21)
[2019-07-18 15:57] VITALS: BP 140/54
[2019-07-18 20:12] VITALS: BP 131/52
[2019-07-18 20:43] LABS: GLUCOMETER DEV NAME(LOC) 5N.2; GLUCOSE,POINT OF CARE 216 MG/DL (70-110)
[2019-07-18 20:43] LABS: GLUCOMETER DEV NAME(LOC) 5N.2; GLUCOSE,POINT OF CARE 157 MG/DL (70-110)
[2019-07-18] MEDS: GuaiFENesin/D-METHORPHAN [SUGAR-FREE] 200-20MG/10 ML SYRUP UDCUP PO PRN (21:35)
[2019-07-18] MEDS: ATORVASTATIN CALCIUM 40 MG TABLET PO SCH (21:36)
[2019-07-19 00:35] VITALS: BP 144/55
[2019-07-19] MEDS: ALBUTEROL SULFATE 2.5 MG/0.5 ML NEB SOLUTION NEB SCH ×4 (02:37→20:00)
[2019-07-19] MEDS: IPRATROPIUM BROMIDE 0.5 MG/2.5 ML NEB SOLUTION NEB SCH ×4 (02:37→20:00)
[2019-07-19 04:20] VITALS: BP 154/62
[2019-07-19] MEDS ORDERED: SODIUM CHLORIDE 0.9% 1,000 ML ONE (06:46)
[2019-07-19] MEDS: HEPARIN SODIUM,PORCINE 5,000 UNITS/ML VIAL SQ SCH ×3 (08:00→15:33)
[2019-07-19] MEDS: BENZONATATE 100 MG CAPSULE PO SCH ×3 (08:12→21:00)
[2019-07-19] MEDS: CARVEDILOL 6.25 MG TABLET PO SCH ×2 (08:12→20:17)
[2019-07-19] MEDS: GuaiFENesin SR 600 MG ER TABLET PO SCH ×2 (08:12→20:17)
[2019-07-19] MEDS: HydrALAZINE HCL 50 MG TABLET PO SCH ×3 (08:13→21:00)
[2019-07-19] MEDS: DOCUSATE SODIUM 100 MG CAPSULE PO SCH ×2 (08:13→20:16)
[2019-07-19] MEDS: -EPOGEN NOTE- MISC SCH (09:00)
[2019-07-19 10:00] VITALS: BP 159/71
[2019-07-19 11:13] VITALS: BP 158/54
[2019-07-19] MEDS: PANTOPRAZOLE SODIUM 40 MG DR TABLET PO SCH (11:37)
[2019-07-19] MEDS: AmLODIPine BESYLATE 10 MG TABLET PO SCH (11:37)
[2019-07-19] MEDS: LOSARTAN POTASSIUM 25 MG TABLET PO SCH (11:37)
[2019-07-19] MEDS: OXYGEN THERAPY IH SCH ×2 (11:37→20:00)
[2019-07-19] MEDS: EPOETIN ALFA 10,000 UNITS/ML 2 ML VIAL SQ PRN (11:37)
[2019-07-19] MEDS: CefTRIAXone 1 GM/DEXTROSE 50 ML IV SCH (15:35)
[2019-07-19 15:49] VITALS: BP 114/49
[2019-07-19] MEDS ORDERED: HEPARIN SODIUM,PORCINE 1,000 UNITS/ML VIAL ONE (17:36)
[2019-07-19] MEDS: GuaiFENesin/D-METHORPHAN [SUGAR-FREE] 200-20MG/10 ML SYRUP UDCUP PO PRN (18:25)
[2019-07-19 19:13] VITALS: BP 138/63
[2019-07-19] MEDS: ATORVASTATIN CALCIUM 40 MG TABLET PO SCH (20:17)
[2019-07-19 20:55] LABS: GLUCOMETER DEV NAME(LOC) 5N.2; GLUCOSE,POINT OF CARE 142 MG/DL (70-110)
[2019-07-20] VITALS (12 sets, daily range): BP systolic 115–155; BP diastolic 48–76
[2019-07-20] MEDS: HEPARIN SODIUM,PORCINE 5,000 UNITS/ML VIAL SQ SCH ×3 (00:22→15:36)
[2019-07-20 01:06] LABS: GLUCOMETER DEV NAME(LOC) 5N.2; GLUCOSE,POINT OF CARE 146 MG/DL (70-110)
[2019-07-20] MEDS: ALBUTEROL SULFATE 2.5 MG/0.5 ML NEB SOLUTION NEB SCH ×4 (02:00→20:28)
[2019-07-20] MEDS: IPRATROPIUM BROMIDE 0.5 MG/2.5 ML NEB SOLUTION NEB SCH ×4 (02:00→20:28)
[2019-07-20 06:29] LABS: EOSINOPHILS % (AUTO) 1.4 % (1.0-6.0); HEMATOCRIT 26.4 % (36-46); LYMPHOCYTES # (AUTO) 2.5 K/uL (1.0-4.8); MEAN CORPUSCULAR HEMOGLOBIN 32.8 pg (26.0-34.0); MEAN CORPUSCULAR HGB CONC 34.2 G/dL (31.0-37.0); MEAN CORPUSCULAR VOLUME 96 fL (80-100); MONOCYTES # (AUTO) 1.2 K/uL (0.1-1.0); MONOCYTES % (AUTO) 10.1 % (2.0-9.0); NEUTROPHILS % (AUTO) 67.5 % (40.0-70.0); PLATELET COUNT (AUTO) 155 K/uL (150-450); RED BLOOD CELL COUNT(AUTO) 2.76 MIL/uL (4.00-5.20); RED CELL DISTRIBUTION WIDTH 13.5 % (11.5-14.5)
[2019-07-20 06:43] LABS: CALCIUM, TOTAL 6.7 mg/dL (8.8-10.5); CREATININE 3.46 mg/dL (0.60-1.30); MAGNESIUM 1.3 mg/dL (1.80-2.40); POTASSIUM 3.9 mmol/L (3.5-5.1)
[2019-07-20] MEDS: OXYGEN THERAPY IH SCH ×2 (08:00→20:00)
[2019-07-20] MEDS: CARVEDILOL 6.25 MG TABLET PO SCH ×2 (09:00→21:06)
[2019-07-20] MEDS: HydrALAZINE HCL 50 MG TABLET PO SCH ×3 (09:00→21:06)
[2019-07-20] MEDS ORDERED: HEPARIN SODIUM,PORCINE 1,000 UNITS/ML 10 ML VIAL ONE (09:01)
[2019-07-20] MEDS ORDERED: HEPARIN SODIUM 1000 UNITS/NS 500 ML ONE (09:01)
[2019-07-20] MEDS ORDERED: LIDOCAINE 1%/EPI 1:200,000/PF 10 ML VIAL ONE (09:02)
[2019-07-20] MEDS: AmLODIPine BESYLATE 10 MG TABLET PO SCH (09:09)
[2019-07-20] MEDS: PANTOPRAZOLE SODIUM 40 MG DR TABLET PO SCH (09:09)
[2019-07-20] MEDS: LOSARTAN POTASSIUM 25 MG TABLET PO SCH (09:09)
[2019-07-20] MEDS: DOCUSATE SODIUM 100 MG CAPSULE PO SCH ×2 (09:09→21:06)
[2019-07-20] MEDS: FUROSEMIDE 80 MG TABLET PO SCH (09:09)
[2019-07-20] MEDS: BENZONATATE 100 MG CAPSULE PO SCH ×3 (09:10→21:05)
[2019-07-20] MEDS: GuaiFENesin SR 600 MG ER TABLET PO SCH ×2 (09:10→21:05)
[2019-07-20] MEDS ORDERED: FentaNYL CITRATE-PF 100 MCG/2 ML VIAL ONE (09:27)
[2019-07-20] MEDS ORDERED: NALOXONE HCL 0.4 MG/ML VIAL ONE (09:27)
[2019-07-20] MEDS ORDERED: MIDAZOLAM HCL 2 MG/2 ML VIAL ONE (09:27)
[2019-07-20] MEDS ORDERED: FLUMAZENIL 0.1 MG/ML 5 ML VIAL IVP ONE (09:27)
[2019-07-20] MEDS ORDERED: CeFAZolin 1 GM/DEXTROSE 50 ML IV ONE ×2 (09:47→10:14)
[2019-07-20] MEDS ORDERED: SODIUM CHLORIDE 0.9% 250 ML IV ONE (10:14)
[2019-07-20] MEDS ORDERED: FentaNYL CITRATE-PF 100 MCG/2 ML VIAL IVP ONE (10:21)
[2019-07-20] MEDS ORDERED: MIDAZOLAM HCL 2 MG/2 ML VIAL IVP ONE (10:22)
[2019-07-20] MEDS ORDERED: MAGNESIUM SULFATE 1 GM in DEXTROSE 5%-WATER 50 ML IV ONE (13:15)
[2019-07-20 13:29] LABS: GLUCOMETER DEV NAME(LOC) 5N.2; GLUCOSE,POINT OF CARE 92 MG/DL (70-110)
[2019-07-20 13:29] LABS: GLUCOMETER DEV NAME(LOC) 5N.2; GLUCOSE,POINT OF CARE 71 MG/DL (70-110)
[2019-07-20] MEDS: ACETAMINOPHEN 325 MG TABLET PO PRN ×2 (14:55→21:05)
[2019-07-20] MEDS: CefTRIAXone 1 GM/DEXTROSE 50 ML IV SCH (14:56)
[2019-07-20] MEDS: ATORVASTATIN CALCIUM 40 MG TABLET PO SCH (21:06)
[2019-07-21] MEDS ORDERED: MAG HYDROX/AL HYDROX/SIMETH 30 ML SUSP UDCUP PO PRN
[2019-07-21] MEDS: HEPARIN SODIUM,PORCINE 5,000 UNITS/ML VIAL SQ SCH ×4 (00:07→23:22)
[2019-07-21 00:21] VITALS: BP 133/62
[2019-07-21] MEDS: ALBUTEROL SULFATE 2.5 MG/0.5 ML NEB SOLUTION NEB SCH ×4 (02:29→20:19)
[2019-07-21] MEDS: IPRATROPIUM BROMIDE 0.5 MG/2.5 ML NEB SOLUTION NEB SCH ×4 (02:29→20:19)
[2019-07-21 05:27] VITALS: BP 129/57
[2019-07-21 06:29] LABS: BASOPHILS % (AUTO) 0.1 % (0.0-2.0); HEMATOCRIT 24.8 % (36-46); HEMOGLOBIN 8.5 g/dL (12.0-16.0); LYMPHOCYTES # (AUTO) 1.8 K/uL (1.0-4.8); LYMPHOCYTES % (AUTO) 13.6 % (22.0-44.0); MEAN CORPUSCULAR HGB CONC 34.3 G/dL (31.0-37.0); MEAN CORPUSCULAR VOLUME 96 fL (80-100); MONOCYTES # (AUTO) 1.2 K/uL (0.1-1.0); MONOCYTES % (AUTO) 8.9 % (2.0-9.0); NEUTROPHILS % (AUTO) 75.4 % (40.0-70.0); PLATELET COUNT (AUTO) 146 K/uL (150-450); RED BLOOD CELL COUNT(AUTO) 2.57 MIL/uL (4.00-5.20); RED CELL DISTRIBUTION WIDTH 13.7 % (11.5-14.5)
[2019-07-21 06:47] LABS: CALCIUM, TOTAL 6.8 mg/dL (8.8-10.5); CREATININE 4.45 mg/dL (0.60-1.30); POTASSIUM 3.8 mmol/L (3.5-5.1)
[2019-07-21 06:57] LABS: GLUCOMETER DEV NAME(LOC) 5N.2; GLUCOSE,POINT OF CARE 107 MG/DL (70-110)
[2019-07-21 08:15] VITALS: BP 134/57
[2019-07-21] MEDS: HydrALAZINE HCL 50 MG TABLET PO SCH ×3 (08:27→20:50)
[2019-07-21] MEDS: -EPOGEN NOTE- MISC SCH ×2 (08:34→10:54)
[2019-07-21] MEDS: PANTOPRAZOLE SODIUM 40 MG DR TABLET PO SCH (08:38)
[2019-07-21] MEDS: GuaiFENesin SR 600 MG ER TABLET PO SCH ×2 (08:38→20:49)
[2019-07-21] MEDS: BENZONATATE 100 MG CAPSULE PO SCH ×3 (08:38→20:49)
[2019-07-21] MEDS: OXYGEN THERAPY IH SCH ×2 (08:39→20:00)
[2019-07-21] MEDS: DOCUSATE SODIUM 100 MG CAPSULE PO SCH ×2 (08:40→20:58)
[2019-07-21] MEDS: LOSARTAN POTASSIUM 25 MG TABLET PO SCH (09:00)
[2019-07-21] MEDS: AmLODIPine BESYLATE 10 MG TABLET PO SCH (09:00)
[2019-07-21] MEDS: CARVEDILOL 6.25 MG TABLET PO SCH ×2 (09:00→20:49)
[2019-07-21] MEDS: EPOETIN ALFA 10,000 UNITS/ML 2 ML VIAL SQ PRN (10:53)
[2019-07-21 10:58] VITALS: BP 146/50
[2019-07-21] MEDS: ACETAMINOPHEN 325 MG TABLET PO PRN ×2 (13:22→23:25)
[2019-07-21] MEDS ORDERED: SODIUM CHLORIDE 0.9% 2,000 ML ONE (13:36)
[2019-07-21 13:50] LABS: MAGNESIUM 1.4 mg/dL (1.80-2.40)
[2019-07-21] MEDS ORDERED: MAGNESIUM SULFATE 1 GM in DEXTROSE 5%-WATER 50 ML IV ONE (14:30)
[2019-07-21 16:10] LABS: GLUCOMETER DEV NAME(LOC) 5S.2A; GLUCOSE,POINT OF CARE 110 MG/DL (70-110)
[2019-07-21 16:10] LABS: GLUCOMETER DEV NAME(LOC) 5S.2A; GLUCOSE,POINT OF CARE 135 MG/DL (70-110)
[2019-07-21 16:10] LABS: GLUCOMETER DEV NAME(LOC) 5S.2A; GLUCOSE,POINT OF CARE 132 MG/DL (70-110)
[2019-07-21] MEDS: CefTRIAXone 1 GM/DEXTROSE 50 ML IV SCH (17:24)
[2019-07-21] MEDS ORDERED: MAGNESIUM OXIDE 400 MG TABLET PO ONE (18:15)
[2019-07-21 20:18] VITALS: BP 158/64
[2019-07-21] MEDS: ATORVASTATIN CALCIUM 40 MG TABLET PO SCH (20:50)
[2019-07-21 22:54] LABS: GLUCOMETER DEV NAME(LOC) 5N.2; GLUCOSE,POINT OF CARE 142 MG/DL (70-110)
[2019-07-21 23:58] VITALS: BP 142/61
[2019-07-22] MEDS: IPRATROPIUM BROMIDE 0.5 MG/2.5 ML NEB SOLUTION NEB SCH ×2 (02:00→09:13)
[2019-07-22] MEDS: ALBUTEROL SULFATE 2.5 MG/0.5 ML NEB SOLUTION NEB SCH ×2 (02:00→09:13)
[2019-07-22 05:15] VITALS: BP 117/47
[2019-07-22 06:36] LABS: CALCIUM, TOTAL 7.2 mg/dL (8.8-10.5); CREATININE 3.26 mg/dL (0.60-1.30); MAGNESIUM 1.3 mg/dL (1.80-2.40); PHOSPHORUS 2.8 mg/dL (2.5-4.9); POTASSIUM 4.1 mmol/L (3.5-5.1)
[2019-07-22 07:11] VITALS: BP 123/55
[2019-07-22 07:49] LABS: GLUCOMETER DEV NAME(LOC) 5N.2; GLUCOSE,POINT OF CARE 89 MG/DL (70-110)
[2019-07-22] MEDS: LOSARTAN POTASSIUM 25 MG TABLET PO SCH (08:10)
[2019-07-22] MEDS: AmLODIPine BESYLATE 10 MG TABLET PO SCH (08:10)
[2019-07-22] MEDS: BENZONATATE 100 MG CAPSULE PO SCH (08:12)
[2019-07-22] MEDS: HydrALAZINE HCL 50 MG TABLET PO SCH (08:12)
[2019-07-22] MEDS: FUROSEMIDE 80 MG TABLET PO SCH (08:12)
[2019-07-22] MEDS: GuaiFENesin SR 600 MG ER TABLET PO SCH (08:12)
[2019-07-22] MEDS: DOCUSATE SODIUM 100 MG CAPSULE PO SCH (08:12)
[2019-07-22] MEDS: PANTOPRAZOLE SODIUM 40 MG DR TABLET PO SCH (08:12)
[2019-07-22] MEDS: CARVEDILOL 6.25 MG TABLET PO SCH (08:12)
[2019-07-22] MEDS: HEPARIN SODIUM,PORCINE 5,000 UNITS/ML VIAL SQ SCH (08:13)
[2019-07-22] MEDS: ACETAMINOPHEN 325 MG TABLET PO PRN (08:14)
[2019-07-22] MEDS: -EPOGEN NOTE- MISC SCH (08:15)
[2019-07-22] MEDS ORDERED: MAGNESIUM SULFATE 2 GM in DEXTROSE 5%-WATER 50 ML IV ONE (08:15)
[2019-07-22] MEDS: OXYGEN THERAPY IH SCH (08:17)
[2019-07-22] MEDS ORDERED: MORPHINE SULFATE 2 MG/ML SYRINGE IVP PRN (09:00)
[2019-07-22] MEDS ORDERED: MethylPREDNISolone SOD SUCC 125 MG/2 ML VIAL IVP ONE (09:00)
[2019-07-22] MEDS ORDERED: DOCU-342 PO (11:09)
[2019-07-22] MEDS ORDERED: FURO80 PO (11:10)
[2019-07-22] MEDS ORDERED: GUAIF600 PO (11:10)
[2019-07-22] MEDS ORDERED: LOSA25TA41 PO (11:11)
[2019-07-22] MEDS ORDERED: ADV250 IH (11:12)
[2019-07-22] MEDS ORDERED: AMOX-426 PO (11:13)
[2019-07-22 11:45] VITALS: BP 104/57
[2019-07-22] MEDS: CefTRIAXone 1 GM/DEXTROSE 50 ML IV SCH (15:15)
[2019-07-23 08:10] LABS: GLUCOMETER DEV NAME(LOC) 5N.2; GLUCOSE,POINT OF CARE 152 MG/DL (70-110)
[2019-07-23 20:58] LABS: GLUCOMETER DEV NAME(LOC) 5S.2A; GLUCOSE,POINT OF CARE 114 MG/DL (70-110)
== END 2019-07-22 15:50 | disposition home or self-care (01) | DRG 264 ==
LOC: EMS 00:11 → 5S 11:48
PROVIDERS: ADMIT Internal Medicine; ATTEND Internal Medicine
PROC: 02HV33Z Insertion of Infusion Device into Superior Vena Cava, Percutaneous Approach (ICD-10-PCS; 2019-07-16)
PROC: B5181ZA Fluoroscopy of Superior Vena Cava using Low Osmolar Contrast, Guidance (ICD-10-PCS; 2019-07-16)
PROC: B548ZZA Ultrasonography of Superior Vena Cava, Guidance (ICD-10-PCS; 2019-07-16)
PROC: 5A1D70Z Performance of Urinary Filtration, Intermittent, Less than 6 Hours Per Day (ICD-10-PCS; 2019-07-16)
PROC: 03170ZD Bypass Right Brachial Artery to Upper Arm Vein, Open Approach (ICD-10-PCS; principal; 2019-07-17 14:00)
PROC: 5A1D70Z Performance of Urinary Filtration, Intermittent, Less than 6 Hours Per Day (ICD-10-PCS; 2019-07-19)
PROC: 0JH63XZ Insertion of Tunneled Vascular Access Device into Chest Subcutaneous Tissue and Fascia, Percutaneous Approach (ICD-10-PCS; 2019-07-20)
PROC: 02HV33Z Insertion of Infusion Device into Superior Vena Cava, Percutaneous Approach (ICD-10-PCS; 2019-07-20)
PROC: B548ZZA Ultrasonography of Superior Vena Cava, Guidance (ICD-10-PCS; 2019-07-20)
PROC: B5181ZA Fluoroscopy of Superior Vena Cava using Low Osmolar Contrast, Guidance (ICD-10-PCS; 2019-07-20)
PROC: 5A1D70Z Performance of Urinary Filtration, Intermittent, Less than 6 Hours Per Day (ICD-10-PCS; 2019-07-21)
DX: I13.2 Hypertensive heart and chronic kidney disease with heart failure and with stage 5 chronic kidney disease, or end stage renal disease (principal); J96.00 Acute respiratory failure, unspecified whether with hypoxia or hypercapnia; I50.31 Acute diastolic (congestive) heart failure; N18.6 End stage renal disease; I50.33 Acute on chronic diastolic (congestive) heart failure; J44.1 Chronic obstructive pulmonary disease with (acute) exacerbation; E87.2 Acidosis; N17.9 Acute kidney failure, unspecified; M19.90 Unspecified osteoarthritis, unspecified site; E83.42 Hypomagnesemia; E78.00 Pure hypercholesterolemia, unspecified; E87.5 Hyperkalemia; E78.5 Hyperlipidemia, unspecified; I25.10 Atherosclerotic heart disease of native coronary artery without angina pectoris; I35.0 Nonrheumatic aortic (valve) stenosis; M10.9 Gout, unspecified; D63.1 Anemia in chronic kidney disease; Z88.0 Allergy status to penicillin; Z88.2 Allergy status to sulfonamides; Z88.8 Allergy status to other drugs, medicaments and biological substances; Z95.5 Presence of coronary angioplasty implant and graft; Z86.73 Personal history of transient ischemic attack (TIA), and cerebral infarction without residual deficits; Z87.891 Personal history of nicotine dependence; Z99.2 Dependence on renal dialysis; Z28.21 Immunization not carried out because of patient refusal
CPT/HCPCS: 36245; 36556; 36561; 36600; 76000; 76937; 82805; 83605; 83735; 84100; 86850; 86900; 86901; 87040; 87340; 87804; 93005; 93970; 94060; 94640; 94644; 97116; 97162; 97530; J0456; J0690; J0696; J0885; J1644; J1940; J1956; J2250; J2270; J2310; J2405; J2704; J2930; J3010; J3370; J3475; J3490; J7030; J7040; J7042; J7050; J7060

== ENCOUNTER 2019-07-27 13:06 | Emergency (ER) | payer MEDICARE, OTHER ==
[~2019-07-27] VITALS: Ht 149.9 cm; Wt 54.5 kg
[~2019-07-27 13:06] MED LIST changes: +ADV250 IH; +AMOX-426 PO; +DOCU-342 PO; +FURO80 PO; +GUAIF600 PO; -HYOS-28 PO; +LOSA25TA41 PO; -PANT40TA25 PO; -TIOT185 IH
[2019-07-27 13:34] LABS: GLUCOSE,POINT OF CARE 101 MG/DL (70-110)
[2019-07-27 15:30] LABS: BASOPHILS % (AUTO) 0.3 % (0.0-2.0); EOSINOPHILS % (AUTO) 2.8 % (1.0-6.0); HEMATOCRIT 26.8 % (36-46); HEMOGLOBIN 8.8 g/dL (12.0-16.0); LYMPHOCYTES # (AUTO) 1.6 K/uL (1.0-4.8); LYMPHOCYTES % (AUTO) 10.7 % (22.0-44.0); MEAN CORPUSCULAR HEMOGLOBIN 32.9 pg (26.0-34.0); MEAN CORPUSCULAR VOLUME 100 fL (80-100); MONOCYTES # (AUTO) 0.9 K/uL (0.1-1.0); MONOCYTES % (AUTO) 5.8 % (2.0-9.0); NEUTROPHILS # (AUTO) 12.2 K/uL (1.8-7.7); NEUTROPHILS % (AUTO) 80.4 % (40.0-70.0); PLATELET COUNT (AUTO) 224 K/uL (150-450); RED BLOOD CELL COUNT(AUTO) 2.69 MIL/uL (4.00-5.20); RED CELL DISTRIBUTION WIDTH 14.3 % (11.5-14.5)
[2019-07-27 15:51] LABS: PROTHROMBIN TIME 10.5 SEC (9.4-11.6)
[2019-07-27 15:59] LABS: CALCIUM, TOTAL 7.8 mg/dL (8.8-10.5); CREATININE 3.42 mg/dL (0.60-1.30); POTASSIUM 3.8 mmol/L (3.5-5.1)
[2019-07-27 16:05] LABS: ALBUMIN 2.8 g/dL (3.4-5.0); BILIRUBIN,TOTAL 0.4 mg/dL (0.1-1.0); TOTAL PROTEIN, SERUM 5.9 g/dL (6.4-8.2)
[2019-07-27 17:47] VITALS: BP 164/59
[2019-07-27 17:58] LABS: APPEARANCE,URINE CLEAR (CLEAR); BILIRUBIN,URINE NEGATIVE (NEGATIVE); GLUCOSE, URINE (UA) NEGATIVE (NEGATIVE); KETONES,URINE NEGATIVE (NEGATIVE); LEUKOCYTE ESTERASE ,URINE NEGATIVE (NEGATIVE); NITRATE,URINE NEGATIVE (NEGATIVE); OCCULT BLOOD,URINE NEGATIVE (NEGATIVE); PROTEIN,URINE SEE CONFIRM (NEGATIVE)
[2019-07-27 17:59] LABS: SULFOSALICYLIC ACID,URINE 4+ (Negative)
[2019-07-27 18:08] LABS: BACTERIA,URINE None Seen /HPF (None Seen); RBC,URINE None Seen /HPF (0-2); SQUAMOUS EPITHELIAL CELL,UR Rare /LPF (None Seen); WBC,URINE 0-2 /HPF (0-5)
== END 2019-07-27 18:29 | disposition home or self-care (01) ==
LOC: EMS 13:08
DX: S09.90XA Unspecified injury of head, initial encounter (principal); D72.829 Elevated white blood cell count, unspecified; I12.0 Hypertensive chronic kidney disease with stage 5 chronic kidney disease or end stage renal disease; N18.6 End stage renal disease; I25.10 Atherosclerotic heart disease of native coronary artery without angina pectoris; J44.9 Chronic obstructive pulmonary disease, unspecified; E78.00 Pure hypercholesterolemia, unspecified; M19.90 Unspecified osteoarthritis, unspecified site; Z95.5 Presence of coronary angioplasty implant and graft; Z98.890 Other specified postprocedural states; Z99.2 Dependence on renal dialysis; Z88.0 Allergy status to penicillin; Z88.2 Allergy status to sulfonamides; Z91.013 Allergy to seafood; Z88.8 Allergy status to other drugs, medicaments and biological substances; Z86.73 Personal history of transient ischemic attack (TIA), and cerebral infarction without residual deficits; Z87.891 Personal history of nicotine dependence; W22.8XXA Striking against or struck by other objects, initial encounter; Y93.89 Activity, other specified; Y92.89 Other specified places as the place of occurrence of the external cause; Y99.8 Other external cause status
CPT/HCPCS: 70450; 87040; 93005

== ENCOUNTER 2019-09-04 00:04 | Inpatient (IN) | payer MEDICARE, OTHER ==
[~2019-09-04] VITALS: Ht 157.5 cm; Wt 60.4 kg
[~2019-09-04 00:04] MED LIST changes: -LOSA25TA41 PO; +LOSA25TA71 PO
[2019-09-04 00:45] LABS: BASOPHILS % (AUTO) 0.5 % (0.0-2.0); EOSINOPHILS % (AUTO) 7.6 % (1.0-6.0); HEMATOCRIT 24.2 % (36-46); HEMOGLOBIN 8.3 g/dL (12.0-16.0); LYMPHOCYTES # (AUTO) 1.9 K/uL (1.0-4.8); LYMPHOCYTES % (AUTO) 25.3 % (22.0-44.0); MEAN CORPUSCULAR HEMOGLOBIN 33.9 pg (26.0-34.0); MEAN CORPUSCULAR HGB CONC 34.1 G/dL (31.0-37.0); MEAN CORPUSCULAR VOLUME 99 fL (80-100); MONOCYTES # (AUTO) 0.8 K/uL (0.1-1.0); MONOCYTES % (AUTO) 10.6 % (2.0-9.0); NEUTROPHILS # (AUTO) 4.3 K/uL (1.8-7.7); PLATELET COUNT (AUTO) 225 K/uL (150-450); RED BLOOD CELL COUNT(AUTO) 2.44 MIL/uL (4.00-5.20); RED CELL DISTRIBUTION WIDTH 14.5 % (11.5-14.5)
[2019-09-04 00:49] LABS: CALCIUM, TOTAL 8.9 mg/dL (8.8-10.5); CREATININE 3.49 mg/dL (0.60-1.30); POTASSIUM 3.8 mmol/L (3.5-5.1)
[2019-09-04 00:54] LABS: ALBUMIN 3.3 g/dL (3.4-5.0); BILIRUBIN,TOTAL 0.4 mg/dL (0.1-1.0); TOTAL PROTEIN, SERUM 6.5 g/dL (6.4-8.2)
[2019-09-04] MEDS ORDERED: NITROGLYCERIN 0.3 MG SUBLINGUAL TABLET #100 SL ONE (02:30)
[2019-09-04] MEDS ORDERED: 0.9% SODIUM CHLORIDE 10 ML SYRINGE IVP PRN ×3 (04:45→14:15)
[2019-09-04] MEDS ORDERED: ACETAMINOPHEN 325 MG TABLET PO PRN (04:45)
[2019-09-04] MEDS ORDERED: ONDANSETRON HCL 4 MG/2 ML VIAL IVP PRN ×2 (04:45→14:15)
[2019-09-04 09:00] VITALS: BP 155/72
[2019-09-04 12:21] VITALS: BP 148/61
[2019-09-04] MEDS: VITAMIN B COMP/VIT C/FOLIC ACID CAPSULE PO SCH (12:38)
[2019-09-04] MEDS ORDERED: ALBUTEROL SULFATE 2.5 MG/0.5 ML NEB SOLUTION NEB PRN (14:15)
[2019-09-04] MEDS ORDERED: ZOLPIDEM TARTRATE 5 MG TABLET PO PRN (14:15)
[2019-09-04] MEDS ORDERED: IPRATROPIUM BROMIDE 0.5 MG/2.5 ML NEB SOLUTION NEB PRN (14:15)
[2019-09-04] MEDS ORDERED: MORPHINE SULFATE 2 MG/ML SYRINGE IVP PRN (14:15)
[2019-09-04] MEDS ORDERED: BENZONATATE 100 MG CAPSULE PO PRN (14:15)
[2019-09-04] MEDS ORDERED: ALBUTEROL SULFATE/IPRATROPIUM 100-20 MCG/SPRAY 4 GM INHALER IH PRN (14:15)
[2019-09-04] MEDS ORDERED: HYDROCODONE/ACETAMINOPHEN 5-325 MG TABLET PO PRN (14:15)
[2019-09-04 15:15] VITALS: BP 174/74
[2019-09-04] MEDS: GuaiFENesin SR 600 MG ER TABLET PO SCH (15:33)
[2019-09-04] MEDS: CARVEDILOL 6.25 MG TABLET PO SCH ×2 (15:33→20:20)
[2019-09-04] MEDS: FLUTICASONE/VILANTEROL 200-25 MCG/INH INHALER [14] IH SCH (15:33)
[2019-09-04] MEDS: DOCUSATE SODIUM 250 MG CAPSULE PO SCH ×2 (15:37→20:20)
[2019-09-04] MEDS: HydrALAZINE HCL 50 MG TABLET PO SCH ×2 (15:37→20:20)
[2019-09-04] MEDS: ATORVASTATIN CALCIUM 40 MG TABLET PO SCH (20:20)
[2019-09-04] MEDS: HEPARIN SODIUM,PORCINE 5,000 UNITS/ML VIAL SQ SCH (20:20)
[2019-09-04 20:36] VITALS: BP 139/59
[2019-09-04] MEDS ORDERED: ATORVASTATIN CALCIUM 20 MG TABLET PO SCH (21:00)
[2019-09-05 00:12] VITALS: BP 150/61
[2019-09-05] MEDS: GuaiFENesin SR 600 MG ER TABLET PO SCH ×2 (02:44→14:31)
[2019-09-05 04:40] VITALS: BP 136/52
[2019-09-05] MEDS: PANTOPRAZOLE SODIUM 40 MG DR TABLET PO SCH (06:42)
[2019-09-05 07:42] VITALS: BP 155/64
[2019-09-05 07:59] LABS: BASOPHILS % (AUTO) 0.8 % (0.0-2.0); EOSINOPHILS % (AUTO) 7.3 % (1.0-6.0); HEMATOCRIT 22.5 % (36-46); HEMOGLOBIN 7.5 g/dL (12.0-16.0); LYMPHOCYTES % (AUTO) 30.1 % (22.0-44.0); MEAN CORPUSCULAR HEMOGLOBIN 33.1 pg (26.0-34.0); MEAN CORPUSCULAR HGB CONC 33.5 G/dL (31.0-37.0); MEAN CORPUSCULAR VOLUME 99 fL (80-100); MONOCYTES # (AUTO) 0.8 K/uL (0.1-1.0); MONOCYTES % (AUTO) 12.1 % (2.0-9.0); NEUTROPHILS # (AUTO) 3.4 K/uL (1.8-7.7); NEUTROPHILS % (AUTO) 49.7 % (40.0-70.0); PLATELET COUNT (AUTO) 216 K/uL (150-450); RED BLOOD CELL COUNT(AUTO) 2.27 MIL/uL (4.00-5.20); RED CELL DISTRIBUTION WIDTH 14.5 % (11.5-14.5)
[2019-09-05 08:05] LABS: % IRON SATURATION 33.3 % (22-44)
[2019-09-05 08:15] LABS: ALBUMIN 2.7 g/dL (3.4-5.0); BILIRUBIN,TOTAL 0.5 mg/dL (0.1-1.0); CALCIUM, TOTAL 8.4 mg/dL (8.8-10.5); CREATININE 4.31 mg/dL (0.60-1.30); POTASSIUM 3.5 mmol/L (3.5-5.1); TOTAL PROTEIN, SERUM 5.6 g/dL (6.4-8.2)
[2019-09-05] MEDS: EPOETIN ALFA 10,000 UNITS/ML VIAL SQ SCH (08:45)
[2019-09-05] MEDS: HEPARIN SODIUM,PORCINE 5,000 UNITS/ML VIAL SQ SCH ×2 (08:47→20:27)
[2019-09-05] MEDS: FLUTICASONE/VILANTEROL 200-25 MCG/INH INHALER [14] IH SCH (08:49)
[2019-09-05] MEDS: DOCUSATE SODIUM 250 MG CAPSULE PO SCH ×3 (08:49→20:26)
[2019-09-05] MEDS: VITAMIN B COMP/VIT C/FOLIC ACID CAPSULE PO SCH (08:49)
[2019-09-05] MEDS ORDERED: EPOETIN ALFA 10,000 UNITS/ML VIAL SQ SCH (09:00)
[2019-09-05] MEDS: HydrALAZINE HCL 50 MG TABLET PO SCH ×3 (09:00→20:26)
[2019-09-05] MEDS: CARVEDILOL 6.25 MG TABLET PO SCH ×2 (09:00→20:26)
[2019-09-05] MEDS ORDERED: SODIUM CHLORIDE 0.9% 2,000 ML ONE (11:00)
[2019-09-05 11:56] VITALS: BP 154/63
[2019-09-05] MEDS ORDERED: HEPARIN SODIUM,PORCINE 1,000 UNITS/ML VIAL IVP ONE (12:00)
[2019-09-05 14:27] LABS: BASOPHILS % (AUTO) 0.8 % (0.0-2.0); EOSINOPHILS % (AUTO) 6.1 % (1.0-6.0); HEMATOCRIT 23.7 % (36-46); HEMOGLOBIN 7.8 g/dL (12.0-16.0); LYMPHOCYTES # (AUTO) 1.7 K/uL (1.0-4.8); LYMPHOCYTES % (AUTO) 24.3 % (22.0-44.0); MEAN CORPUSCULAR HEMOGLOBIN 32.5 pg (26.0-34.0); MEAN CORPUSCULAR HGB CONC 32.8 G/dL (31.0-37.0); MEAN CORPUSCULAR VOLUME 99 fL (80-100); MONOCYTES # (AUTO) 0.8 K/uL (0.1-1.0); NEUTROPHILS # (AUTO) 4.1 K/uL (1.8-7.7); NEUTROPHILS % (AUTO) 57.8 % (40.0-70.0); PLATELET COUNT (AUTO) 196 K/uL (150-450); RED BLOOD CELL COUNT(AUTO) 2.39 MIL/uL (4.00-5.20); RED CELL DISTRIBUTION WIDTH 14.9 % (11.5-14.5)
[2019-09-05 14:41] LABS: PROTHROMBIN TIME 10.2 SEC (9.4-11.6)
[2019-09-05 14:42] LABS: HEMOGLOBIN A1C 4.3 % (4.5-6.2)
[2019-09-05 15:00] LABS: CHOL/HDL RATIO 5.1 (3.9-5.7); THYROID STIMULATING HORMONE 0.85 uIU/mL (0.36-3.74)
[2019-09-05 16:19] VITALS: BP 169/75
[2019-09-05] MEDS: ACETAMINOPHEN 325 MG TABLET PO PRN ×2 (16:31→20:27)
[2019-09-05] MEDS: AmLODIPine BESYLATE 10 MG TABLET PO SCH (16:32)
[2019-09-05] MEDS: LOSARTAN POTASSIUM 25 MG TABLET PO SCH (16:32)
[2019-09-05 20:15] VITALS: BP 154/69
[2019-09-05] MEDS: ATORVASTATIN CALCIUM 40 MG TABLET PO SCH (20:27)
[2019-09-06] VITALS (8 sets, daily range): BP systolic 115–159; BP diastolic 45–65
[2019-09-06] MEDS: GuaiFENesin SR 600 MG ER TABLET PO SCH ×2 (02:03→13:55)
[2019-09-06] MEDS: PANTOPRAZOLE SODIUM 40 MG DR TABLET PO SCH (05:54)
[2019-09-06 07:21] LABS: BASOPHILS % (AUTO) 0.8 % (0.0-2.0); EOSINOPHILS % (AUTO) 6.4 % (1.0-6.0); HEMATOCRIT 22.1 % (36-46); HEMOGLOBIN 7.7 g/dL (12.0-16.0); LYMPHOCYTES # (AUTO) 2.4 K/uL (1.0-4.8); LYMPHOCYTES % (AUTO) 35.9 % (22.0-44.0); MEAN CORPUSCULAR HEMOGLOBIN 34.3 pg (26.0-34.0); MEAN CORPUSCULAR HGB CONC 34.9 G/dL (31.0-37.0); MEAN CORPUSCULAR VOLUME 99 fL (80-100); MONOCYTES # (AUTO) 1.1 K/uL (0.1-1.0); MONOCYTES % (AUTO) 15.9 % (2.0-9.0); NEUTROPHILS # (AUTO) 2.8 K/uL (1.8-7.7); PLATELET COUNT (AUTO) 201 K/uL (150-450); RED BLOOD CELL COUNT(AUTO) 2.24 MIL/uL (4.00-5.20); RED CELL DISTRIBUTION WIDTH 14.7 % (11.5-14.5)
[2019-09-06 07:27] LABS: ALBUMIN 2.7 g/dL (3.4-5.0); BILIRUBIN,TOTAL 0.5 mg/dL (0.1-1.0); CALCIUM, TOTAL 8.1 mg/dL (8.8-10.5); CREATININE 2.83 mg/dL (0.60-1.30); MAGNESIUM 1.6 mg/dL (1.80-2.40); PHOSPHORUS 3.5 mg/dL (2.5-4.9); TOTAL PROTEIN, SERUM 5.7 g/dL (6.4-8.2)
[2019-09-06] MEDS: FLUTICASONE/VILANTEROL 200-25 MCG/INH INHALER [14] IH SCH (08:07)
[2019-09-06] MEDS: HydrALAZINE HCL 50 MG TABLET PO SCH ×3 (08:08→20:07)
[2019-09-06] MEDS: VITAMIN B COMP/VIT C/FOLIC ACID CAPSULE PO SCH (08:08)
[2019-09-06] MEDS: CARVEDILOL 6.25 MG TABLET PO SCH ×2 (08:09→20:07)
[2019-09-06] MEDS: HEPARIN SODIUM,PORCINE 5,000 UNITS/ML VIAL SQ SCH ×2 (08:09→20:08)
[2019-09-06] MEDS: DOCUSATE SODIUM 250 MG CAPSULE PO SCH ×3 (08:09→20:07)
[2019-09-06] MEDS ORDERED: POTASSIUM CHLORIDE 10 MEQ ER TABLET PO ONE (10:30)
[2019-09-06] MEDS: AmLODIPine BESYLATE 10 MG TABLET PO SCH (11:58)
[2019-09-06] MEDS: LOSARTAN POTASSIUM 25 MG TABLET PO SCH (11:58)
[2019-09-06 19:34] LABS: CALCIUM, TOTAL 8.4 mg/dL (8.8-10.5); CREATININE 3.66 mg/dL (0.60-1.30); POTASSIUM 3.8 mmol/L (3.5-5.1)
[2019-09-06] MEDS: ATORVASTATIN CALCIUM 40 MG TABLET PO SCH (20:08)
[2019-09-07] VITALS (7 sets, daily range): BP systolic 116–154; BP diastolic 48–60
[2019-09-07] MEDS: GuaiFENesin SR 600 MG ER TABLET PO SCH ×2 (00:55→18:12)
[2019-09-07] MEDS: PANTOPRAZOLE SODIUM 40 MG DR TABLET PO SCH (04:46)
[2019-09-07 07:08] LABS: BILIRUBIN,TOTAL 0.6 mg/dL (0.1-1.0); CALCIUM, TOTAL 8.7 mg/dL (8.8-10.5); CREATININE 3.91 mg/dL (0.60-1.30); POTASSIUM 3.5 mmol/L (3.5-5.1); TOTAL PROTEIN, SERUM 6.4 g/dL (6.4-8.2)
[2019-09-07] MEDS: HEPARIN SODIUM,PORCINE 5,000 UNITS/ML VIAL SQ SCH ×2 (09:00→20:28)
[2019-09-07] MEDS: LOSARTAN POTASSIUM 25 MG TABLET PO SCH (09:00)
[2019-09-07] MEDS: AmLODIPine BESYLATE 10 MG TABLET PO SCH (09:00)
[2019-09-07] MEDS ORDERED: FUROSEMIDE 80 MG TABLET PO SCH (09:00)
[2019-09-07] MEDS: DOCUSATE SODIUM 250 MG CAPSULE PO SCH ×4 (09:00→20:28)
[2019-09-07 09:07] LABS: MAGNESIUM 1.9 mg/dL (1.80-2.40)
[2019-09-07] MEDS: FLUTICASONE/VILANTEROL 200-25 MCG/INH INHALER [14] IH SCH (09:35)
[2019-09-07] MEDS: VITAMIN B COMP/VIT C/FOLIC ACID CAPSULE PO SCH (09:38)
[2019-09-07] MEDS: CARVEDILOL 6.25 MG TABLET PO SCH ×2 (09:42→20:28)
[2019-09-07] MEDS: HydrALAZINE HCL 50 MG TABLET PO SCH ×3 (09:43→20:28)
[2019-09-07] MEDS ORDERED: MANNITOL 25%-12.5 GM/50 ML VIAL IVP ONE (12:00)
[2019-09-07] MEDS ORDERED: HEPARIN SODIUM,PORCINE 1,000 UNITS/ML VIAL IVP ONE (12:00)
[2019-09-07] MEDS: ATORVASTATIN CALCIUM 40 MG TABLET PO SCH (20:28)
[2019-09-08 05:37] VITALS: BP 125/54
[2019-09-08] MEDS: PANTOPRAZOLE SODIUM 40 MG DR TABLET PO SCH (05:59)
[2019-09-08 07:00] LABS: ALBUMIN 2.7 g/dL (3.4-5.0); BILIRUBIN,TOTAL 0.4 mg/dL (0.1-1.0); CALCIUM, TOTAL 8.3 mg/dL (8.8-10.5); CREATININE 3.1 mg/dL (0.60-1.30); POTASSIUM 3.8 mmol/L (3.5-5.1); TOTAL PROTEIN, SERUM 5.7 g/dL (6.4-8.2)
[2019-09-08 08:17] VITALS: BP 139/50
[2019-09-08] MEDS: EPOETIN ALFA 10,000 UNITS/ML VIAL SQ SCH (08:36)
[2019-09-08] MEDS: CARVEDILOL 6.25 MG TABLET PO SCH ×2 (08:36→20:32)
[2019-09-08] MEDS: LOSARTAN POTASSIUM 25 MG TABLET PO SCH (08:36)
[2019-09-08] MEDS: FLUTICASONE/VILANTEROL 200-25 MCG/INH INHALER [14] IH SCH (08:36)
[2019-09-08] MEDS: HydrALAZINE HCL 50 MG TABLET PO SCH ×3 (08:36→20:32)
[2019-09-08] MEDS: GuaiFENesin SR 600 MG ER TABLET PO SCH ×2 (08:36→20:32)
[2019-09-08] MEDS: HEPARIN SODIUM,PORCINE 5,000 UNITS/ML VIAL SQ SCH ×2 (08:37→20:31)
[2019-09-08] MEDS: DOCUSATE SODIUM 250 MG CAPSULE PO SCH ×3 (08:37→20:32)
[2019-09-08] MEDS: VITAMIN B COMP/VIT C/FOLIC ACID CAPSULE PO SCH (08:37)
[2019-09-08] MEDS: AmLODIPine BESYLATE 10 MG TABLET PO SCH (08:38)
[2019-09-08 11:15] VITALS: BP 117/37
[2019-09-08 15:48] VITALS: BP 135/56
[2019-09-08 20:34] VITALS: BP 153/67
[2019-09-08] MEDS: ATORVASTATIN CALCIUM 40 MG TABLET PO SCH (20:39)
[2019-09-09] VITALS (16 sets, daily range): BP systolic 114–188; BP diastolic 51–92
[2019-09-09 06:39] LABS: PROTHROMBIN TIME 10.2 SEC (9.4-11.6)
[2019-09-09] MEDS: PANTOPRAZOLE SODIUM 40 MG DR TABLET PO SCH (06:39)
[2019-09-09 07:17] LABS: ALBUMIN 2.6 g/dL (3.4-5.0); BILIRUBIN,TOTAL 0.3 mg/dL (0.1-1.0); CALCIUM, TOTAL 8.5 mg/dL (8.8-10.5); CREATININE 4.3 mg/dL (0.60-1.30); POTASSIUM 4.1 mmol/L (3.5-5.1); TOTAL PROTEIN, SERUM 5.6 g/dL (6.4-8.2)
[2019-09-09] MEDS: CARVEDILOL 6.25 MG TABLET PO SCH ×2 (07:39→20:14)
[2019-09-09] MEDS: LOSARTAN POTASSIUM 25 MG TABLET PO SCH (07:39)
[2019-09-09] MEDS: HydrALAZINE HCL 50 MG TABLET PO SCH ×3 (07:39→20:14)
[2019-09-09] MEDS: DOCUSATE SODIUM 250 MG CAPSULE PO SCH ×3 (07:39→20:14)
[2019-09-09] MEDS: GuaiFENesin SR 600 MG ER TABLET PO SCH ×2 (07:39→20:14)
[2019-09-09] MEDS: HEPARIN SODIUM,PORCINE 5,000 UNITS/ML VIAL SQ SCH ×2 (07:40→20:14)
[2019-09-09] MEDS: AmLODIPine BESYLATE 10 MG TABLET PO SCH (07:40)
[2019-09-09] MEDS: VITAMIN B COMP/VIT C/FOLIC ACID CAPSULE PO SCH (07:40)
[2019-09-09] MEDS: FLUTICASONE/VILANTEROL 200-25 MCG/INH INHALER [14] IH SCH (08:18)
[2019-09-09] MEDS ORDERED: IOHEXOL 300 MG/ML 150 ML VIAL ONE (09:29)
[2019-09-09] MEDS ORDERED: LIDOCAINE/PF 1% 30 ML VIAL ONE (09:29)
[2019-09-09] MEDS ORDERED: SODIUM BICARBONATE 50 MEQ/50 ML VIAL ONE (09:29)
[2019-09-09] MEDS ORDERED: HEPARIN SODIUM 1000 UNITS/NS 1,000 ML ONE (09:29)
[2019-09-09] MEDS ORDERED: DiphenhydrAMINE HCL 50 MG/ML VIAL ONE (10:27)
[2019-09-09] MEDS ORDERED: MethylPREDNISolone SOD SUCC 125 MG/2 ML VIAL ONE (10:27)
[2019-09-09] MEDS ORDERED: FentaNYL CITRATE-PF 100 MCG/2 ML VIAL ONE (10:30)
[2019-09-09] MEDS ORDERED: SODIUM CHLORIDE 0.9% 500 ML IV ONE (10:35)
[2019-09-09] MEDS ORDERED: HEPARIN SODIUM 1000 UNITS/NS 1,000 ML IARTER ONE (10:35)
[2019-09-09] MEDS ORDERED: IOHEXOL 300 MG/ML 150 ML VIAL IARTER ONE (10:45)
[2019-09-09] MEDS ORDERED: FentaNYL CITRATE-PF 100 MCG/2 ML VIAL IVP ONE (10:45)
[2019-09-09] MEDS ORDERED: MethylPREDNISolone SOD SUCC 125 MG/2 ML VIAL IVP ONE (10:45)
[2019-09-09] MEDS ORDERED: LIDOCAINE 1% 30 ML/SOD BICARB 8.4% 4 ML SQ ONE (10:45)
[2019-09-09] MEDS ORDERED: DiphenhydrAMINE HCL 50 MG/ML VIAL IVP ONE (10:45)
[2019-09-09] MEDS ORDERED: LABETALOL HCL 5 MG/ML 20 ML VIAL IVP ONE ×2 (11:07→11:15)
[2019-09-09] MEDS ORDERED: IOHEXOL 300 MG/ML 50 ML VIAL ONE (11:18)
[2019-09-09] MEDS: ACETAMINOPHEN 325 MG TABLET PO PRN ×2 (16:05→20:22)
[2019-09-09] MEDS: ATORVASTATIN CALCIUM 40 MG TABLET PO SCH (20:14)
[2019-09-10 00:23] VITALS: BP 117/40
[2019-09-10 05:36] VITALS: BP 139/53
[2019-09-10] MEDS: PANTOPRAZOLE SODIUM 40 MG DR TABLET PO SCH (07:10)
[2019-09-10 07:26] LABS: BILIRUBIN,TOTAL 0.4 mg/dL (0.1-1.0); CREATININE 3.04 mg/dL (0.60-1.30); POTASSIUM 3.2 mmol/L (3.5-5.1)
[2019-09-10 07:35] LABS: CALCIUM, TOTAL 8.2 mg/dL (8.8-10.5)
[2019-09-10 08:03] VITALS: BP 152/64
[2019-09-10] MEDS: GuaiFENesin SR 600 MG ER TABLET PO SCH (08:06)
[2019-09-10] MEDS: AmLODIPine BESYLATE 10 MG TABLET PO SCH (08:06)
[2019-09-10] MEDS: CARVEDILOL 6.25 MG TABLET PO SCH (08:06)
[2019-09-10] MEDS: VITAMIN B COMP/VIT C/FOLIC ACID CAPSULE PO SCH (08:06)
[2019-09-10] MEDS: DOCUSATE SODIUM 250 MG CAPSULE PO SCH ×2 (08:06→16:36)
[2019-09-10] MEDS: HEPARIN SODIUM,PORCINE 5,000 UNITS/ML VIAL SQ SCH (08:06)
[2019-09-10] MEDS: EPOETIN ALFA 10,000 UNITS/ML VIAL SQ SCH (08:07)
[2019-09-10] MEDS: FLUTICASONE/VILANTEROL 200-25 MCG/INH INHALER [14] IH SCH (08:08)
[2019-09-10] MEDS: LOSARTAN POTASSIUM 25 MG TABLET PO SCH (09:00)
[2019-09-10] MEDS: HydrALAZINE HCL 50 MG TABLET PO SCH ×2 (09:00→16:36)
[2019-09-10 10:18] VITALS: BP 129/47
[2019-09-10 16:00] VITALS: BP 151/57
[2019-09-10] MEDS ORDERED: ALBUMIN HUMAN 25%-12.5GM/50ML IV BOTTLE IV ONE (18:21)
[2019-09-10] MEDS ORDERED: HEPARIN SODIUM,PORCINE 1,000 UNITS/ML VIAL IVP ONE (18:21)
== END 2019-09-10 18:15 | disposition home or self-care (01) | DRG 286 ==
LOC: EMS 00:08 → 5S 07:30
PROVIDERS: ADMIT Internal Medicine; ATTEND Internal Medicine
PROC: 5A1D70Z Performance of Urinary Filtration, Intermittent, Less than 6 Hours Per Day (ICD-10-PCS; principal; 2019-09-05)
PROC: 5A1D70Z Performance of Urinary Filtration, Intermittent, Less than 6 Hours Per Day (ICD-10-PCS; 2019-09-07)
PROC: 5A1D70Z Performance of Urinary Filtration, Intermittent, Less than 6 Hours Per Day (ICD-10-PCS; 2019-09-09)
PROC: 4A023N8 Measurement of Cardiac Sampling and Pressure, Bilateral, Percutaneous Approach (ICD-10-PCS; 2019-09-09)
PROC: B2111ZZ Fluoroscopy of Multiple Coronary Arteries using Low Osmolar Contrast (ICD-10-PCS; 2019-09-09)
PROC: B2161ZZ Fluoroscopy of Right and Left Heart using Low Osmolar Contrast (ICD-10-PCS; 2019-09-09)
DX: I25.119 Atherosclerotic heart disease of native coronary artery with unspecified angina pectoris (principal); I50.31 Acute diastolic (congestive) heart failure; N18.6 End stage renal disease; I13.2 Hypertensive heart and chronic kidney disease with heart failure and with stage 5 chronic kidney disease, or end stage renal disease; J98.11 Atelectasis; I50.30 Unspecified diastolic (congestive) heart failure; D64.9 Anemia, unspecified; I35.0 Nonrheumatic aortic (valve) stenosis; J44.9 Chronic obstructive pulmonary disease, unspecified; E78.5 Hyperlipidemia, unspecified; M10.9 Gout, unspecified; E11.22 Type 2 diabetes mellitus with diabetic chronic kidney disease; E87.5 Hyperkalemia; M19.90 Unspecified osteoarthritis, unspecified site; E78.00 Pure hypercholesterolemia, unspecified; Z99.2 Dependence on renal dialysis; Z86.73 Personal history of transient ischemic attack (TIA), and cerebral infarction without residual deficits; Z95.5 Presence of coronary angioplasty implant and graft; Z88.8 Allergy status to other drugs, medicaments and biological substances; Z87.891 Personal history of nicotine dependence; Z88.0 Allergy status to penicillin; Z91.013 Allergy to seafood; Z88.2 Allergy status to sulfonamides; Z79.899 Other long term (current) drug therapy; Z90.49 Acquired absence of other specified parts of digestive tract
CPT/HCPCS: 71250; 83036; 83540; 83550; 83735; 84100; 84443; 87081; 87340; 93005; 93460; 97110; 97116; 97162; 97530; J0885; J1200; J1644; J2150; J2270; J2930; J3010; J3490; J7030; P9047; Q9967

== ENCOUNTER 2019-12-02 10:29 | Inpatient (IN) | payer MEDICARE, OTHER ==
[~2019-12-02] VITALS: Ht 152.4 cm; Wt 67.0 kg
[~2019-12-02 10:29] MED LIST changes: -AMOX-426 PO; +ASPI-1111 PO; -GUAIF600 PO; +LEVO-72 PO
[2019-12-02] MEDS ORDERED: MORPHINE SULFATE 4 MG/ML SYRINGE IVP ONE (10:45)
[2019-12-02] MEDS ORDERED: ONDANSETRON HCL 4 MG/2 ML VIAL IVP ONE (10:45)
[2019-12-02] MEDS ORDERED: ROSU20TA23 PO (11:07)
[2019-12-02] MEDS ORDERED: ISOS60TA4 PO (11:07)
[2019-12-02] MEDS ORDERED: COLC0.6T73 PO (11:07)
[2019-12-02] MEDS ORDERED: HYOS0.122 PO (11:07)
[2019-12-02] MEDS ORDERED: SODI650T PO (11:07)
[2019-12-02 11:42] LABS: BASOPHILS % (AUTO) 0.8 % (0.0-2.0); EOSINOPHILS % (AUTO) 21.8 % (1.0-6.0); HEMATOCRIT 33.1 % (36-46); HEMOGLOBIN 10.5 g/dL (12.0-16.0); LYMPHOCYTES # (AUTO) 1.7 K/uL (1.0-4.8); MEAN CORPUSCULAR HEMOGLOBIN 30.4 pg (26.0-34.0); MEAN CORPUSCULAR HGB CONC 31.9 G/dL (31.0-37.0); MEAN CORPUSCULAR VOLUME 96 fL (80-100); MONOCYTES # (AUTO) 0.6 K/uL (0.1-1.0); MONOCYTES % (AUTO) 7.3 % (2.0-9.0); NEUTROPHILS # (AUTO) 4.1 K/uL (1.8-7.7); NEUTROPHILS % (AUTO) 49.1 % (40.0-70.0); PLATELET COUNT (AUTO) 190 K/uL (150-450); RED BLOOD CELL COUNT(AUTO) 3.46 MIL/uL (4.00-5.20); RED CELL DISTRIBUTION WIDTH 18.7 % (11.5-14.5)
[2019-12-02 11:50] LABS: CALCIUM, TOTAL 8.5 mg/dL (8.8-10.5); CREATININE 4.55 mg/dL (0.60-1.30); POTASSIUM 3.6 mmol/L (3.5-5.1)
[2019-12-02 11:57] LABS: BILIRUBIN,TOTAL 0.4 mg/dL (0.1-1.0); C-REACTIVE PROTEIN QUANT 0.25 mg/dL (0.00-0.30); TOTAL PROTEIN, SERUM 7.2 g/dL (6.4-8.2)
[2019-12-02 12:06] LABS: D-DIMER 3.4 mg/L FEU (0.00-0.50); PROTHROMBIN TIME 10.4 SEC (9.4-11.6)
[2019-12-02 12:13] LABS: LACTIC ACID 1.8 mmol/L (0.4-2.0)
[2019-12-02] MEDS ORDERED: HydrALAZINE HCL 20 MG/ML VIAL IVP ONE (12:30)
[2019-12-02] MEDS ORDERED: METOCLOPRAMIDE HCL 5 MG/ML 2 ML VIAL IVP ONE (13:00)
[2019-12-02 13:01] LABS: INFLUENZA TYPE A NEGATIVE FOR TYPE A (NEGATIVE); INFLUENZA TYPE B NEGATIVE FOR TYPE B (NEGATIVE)
[2019-12-02] MEDS ORDERED: 0.9% SODIUM CHLORIDE 10 ML SYRINGE IVP PRN (15:00)
[2019-12-02] MEDS ORDERED: ACETAMINOPHEN 325 MG TABLET PO PRN ×2 (15:00→16:30)
[2019-12-02] MEDS ORDERED: HYDROCODONE/ACETAMINOPHEN 5-325 MG TABLET PO PRN (16:30)
[2019-12-02] MEDS ORDERED: ZOLPIDEM TARTRATE 5 MG TABLET PO PRN (16:30)
[2019-12-02] MEDS ORDERED: MORPHINE SULFATE 2 MG/ML SYRINGE IVP PRN (16:30)
[2019-12-02] MEDS ORDERED: BISACODYL 10 MG RECTAL RECTAL SUPPOSITORY PR PRN (16:30)
[2019-12-02] MEDS ORDERED: MAGNESIUM HYDROXIDE SUSPENSION 30 ML UDCUP PO PRN (16:30)
[2019-12-02] MEDS ORDERED: DiphenhydrAMINE HCL 50 MG/ML VIAL IVP ONE (16:45)
[2019-12-02] MEDS: VITAMIN B COMP/VIT C/FOLIC ACID CAPSULE PO SCH (17:10)
[2019-12-02 18:57] VITALS: BP 138/46
[2019-12-02 19:45] VITALS: BP 138/58
[2019-12-02] MEDS ORDERED: ROSUVASTATIN CALCIUM 20 MG TABLET PO SCH (21:00)
[2019-12-02] MEDS ORDERED: DOCUSATE SODIUM 100 MG CAPSULE PO SCH (21:00)
[2019-12-02] MEDS: HydrALAZINE HCL 50 MG TABLET PO SCH (22:07)
[2019-12-02] MEDS: CARVEDILOL 6.25 MG TABLET PO SCH (22:08)
[2019-12-02] MEDS: ATORVASTATIN CALCIUM 40 MG TABLET PO SCH (22:08)
[2019-12-02] MEDS: COLCHICINE 0.6 MG TABLET PO SCH (22:08)
[2019-12-02] MEDS: HYOSCYAMINE SULFATE 0.125 MG TAB PO SCH (22:08)
[2019-12-02 23:50] VITALS: BP 126/80
[2019-12-03 04:48] VITALS: BP 135/55
[2019-12-03 07:15] LABS: BASOPHILS % (AUTO) 0.6 % (0.0-2.0); LYMPHOCYTES # (AUTO) 1.5 K/uL (1.0-4.8); LYMPHOCYTES % (AUTO) 20.6 % (22.0-44.0); MEAN CORPUSCULAR HEMOGLOBIN 31.1 pg (26.0-34.0); MEAN CORPUSCULAR HGB CONC 32.4 G/dL (31.0-37.0); MEAN CORPUSCULAR VOLUME 96 fL (80-100); MONOCYTES # (AUTO) 0.6 K/uL (0.1-1.0); NEUTROPHILS # (AUTO) 3.8 K/uL (1.8-7.7); NEUTROPHILS % (AUTO) 50.2 % (40.0-70.0); PLATELET COUNT (AUTO) 175 K/uL (150-450); RED BLOOD CELL COUNT(AUTO) 3.22 MIL/uL (4.00-5.20); RED CELL DISTRIBUTION WIDTH 19.1 % (11.5-14.5)
[2019-12-03 07:25] LABS: EOSINOPHILS % (AUTO) 20.6 % (1.0-6.0)
[2019-12-03 07:43] VITALS: BP 170/71
[2019-12-03] MEDS: HEPARIN SODIUM,PORCINE 5,000 UNITS/ML VIAL SQ SCH ×3 (08:00→16:13)
[2019-12-03 08:04] LABS: ALBUMIN 2.9 g/dL (3.4-5.0); BILIRUBIN,TOTAL 0.3 mg/dL (0.1-1.0); CALCIUM, TOTAL 8.5 mg/dL (8.8-10.5); CREATININE 5.38 mg/dL (0.60-1.30); POTASSIUM 4.2 mmol/L (3.5-5.1); TOTAL PROTEIN, SERUM 6.4 g/dL (6.4-8.2)
[2019-12-03] MEDS: HydrALAZINE HCL 50 MG TABLET PO SCH ×2 (09:00→16:12)
[2019-12-03] MEDS: ONDANSETRON HCL 4 MG/2 ML VIAL IVP PRN (10:55)
[2019-12-03] MEDS: HYOSCYAMINE SULFATE 0.125 MG TAB PO SCH ×2 (10:56→22:24)
[2019-12-03] MEDS: SODIUM BICARBONATE 650 MG TABLET PO SCH (10:56)
[2019-12-03] MEDS: DOCUSATE SODIUM 250 MG CAPSULE PO SCH (10:56)
[2019-12-03] MEDS: COLCHICINE 0.6 MG TABLET PO SCH ×4 (10:56→22:24)
[2019-12-03] MEDS: VITAMIN B COMP/VIT C/FOLIC ACID CAPSULE PO SCH (10:56)
[2019-12-03] MEDS: ASPIRIN 81 MG EC TABLET PO SCH (10:56)
[2019-12-03] MEDS: ISOSORBIDE MONONITRATE 60 MG ER TABLET PO SCH (10:56)
[2019-12-03] MEDS: PANTOPRAZOLE SODIUM 40 MG DR TABLET PO SCH (10:57)
[2019-12-03] MEDS: LOSARTAN POTASSIUM 50 MG TABLET PO SCH (10:57)
[2019-12-03] MEDS: AmLODIPine BESYLATE 5 MG TABLET PO SCH (10:57)
[2019-12-03] MEDS: CARVEDILOL 6.25 MG TABLET PO SCH ×2 (10:57→21:24)
[2019-12-03 11:02] VITALS: BP 152/67
[2019-12-03 15:12] VITALS: BP 148/50
[2019-12-03 20:22] VITALS: BP 148/62
[2019-12-03] MEDS: ATORVASTATIN CALCIUM 40 MG TABLET PO SCH (21:24)
[2019-12-04] VITALS (7 sets, daily range): BP systolic 111–168; BP diastolic 35–59
[2019-12-04] MEDS: HEPARIN SODIUM,PORCINE 5,000 UNITS/ML VIAL SQ SCH ×4 (00:13→23:44)
[2019-12-04] MEDS: HydrALAZINE HCL 50 MG TABLET PO SCH ×4 (00:13→20:33)
[2019-12-04] MEDS ORDERED: DiphenhydrAMINE HCL 25 MG CAPSULE PO PRN (06:30)
[2019-12-04 06:39] LABS: BASOPHILS % (AUTO) 0.6 % (0.0-2.0); HEMATOCRIT 30.2 % (36-46); HEMOGLOBIN 10.1 g/dL (12.0-16.0); LYMPHOCYTES # (AUTO) 1.8 K/uL (1.0-4.8); LYMPHOCYTES % (AUTO) 24.1 % (22.0-44.0); MEAN CORPUSCULAR HGB CONC 33.3 G/dL (31.0-37.0); MEAN CORPUSCULAR VOLUME 96 fL (80-100); MONOCYTES # (AUTO) 0.7 K/uL (0.1-1.0); NEUTROPHILS # (AUTO) 3.3 K/uL (1.8-7.7); NEUTROPHILS % (AUTO) 44.4 % (40.0-70.0); RED BLOOD CELL COUNT(AUTO) 3.14 MIL/uL (4.00-5.20); RED CELL DISTRIBUTION WIDTH 19.6 % (11.5-14.5)
[2019-12-04 07:04] LABS: CALCIUM, TOTAL 8.1 mg/dL (8.8-10.5); CREATININE 4.35 mg/dL (0.60-1.30); POTASSIUM 4.3 mmol/L (3.5-5.1)
[2019-12-04 07:21] LABS: EOSINOPHILS % (AUTO) 21.9 % (1.0-6.0); PLATELET COUNT (AUTO) 152 K/uL (150-450)
[2019-12-04] MEDS: DOCUSATE SODIUM 250 MG CAPSULE PO SCH (08:16)
[2019-12-04] MEDS: PANTOPRAZOLE SODIUM 40 MG DR TABLET PO SCH (08:16)
[2019-12-04] MEDS: VITAMIN B COMP/VIT C/FOLIC ACID CAPSULE PO SCH (08:16)
[2019-12-04] MEDS: ASPIRIN 81 MG EC TABLET PO SCH (08:16)
[2019-12-04] MEDS: AmLODIPine BESYLATE 5 MG TABLET PO SCH ×2 (08:16→09:00)
[2019-12-04] MEDS: HYOSCYAMINE SULFATE 0.125 MG TAB PO SCH ×2 (08:17→20:33)
[2019-12-04] MEDS: CARVEDILOL 6.25 MG TABLET PO SCH ×2 (08:17→20:33)
[2019-12-04] MEDS: COLCHICINE 0.6 MG TABLET PO SCH ×5 (08:17→20:43)
[2019-12-04] MEDS: LOSARTAN POTASSIUM 50 MG TABLET PO SCH (08:17)
[2019-12-04] MEDS: ISOSORBIDE MONONITRATE 60 MG ER TABLET PO SCH (08:18)
[2019-12-04] MEDS: SODIUM BICARBONATE 650 MG TABLET PO SCH (08:18)
[2019-12-04] MEDS ORDERED: FUROSEMIDE 80 MG TABLET PO SCH (09:00)
[2019-12-04] MEDS ORDERED: SODIUM CHLORIDE 0.9% 1,000 ML ONE (13:44)
[2019-12-04] MEDS: ONDANSETRON HCL 4 MG/2 ML VIAL IVP PRN (16:37)
[2019-12-04] MEDS: ATORVASTATIN CALCIUM 40 MG TABLET PO SCH (20:33)
[2019-12-05 03:54] VITALS: BP 154/60
[2019-12-05 06:59] LABS: BASOPHILS % (AUTO) 0.7 % (0.0-2.0); HEMATOCRIT 30.6 % (36-46); HEMOGLOBIN 10.1 g/dL (12.0-16.0); LYMPHOCYTES # (AUTO) 1.7 K/uL (1.0-4.8); LYMPHOCYTES % (AUTO) 23.2 % (22.0-44.0); MEAN CORPUSCULAR HEMOGLOBIN 31.8 pg (26.0-34.0); MEAN CORPUSCULAR VOLUME 97 fL (80-100); MONOCYTES # (AUTO) 0.7 K/uL (0.1-1.0); MONOCYTES % (AUTO) 9.3 % (2.0-9.0); NEUTROPHILS # (AUTO) 3.4 K/uL (1.8-7.7); NEUTROPHILS % (AUTO) 46.3 % (40.0-70.0); PLATELET COUNT (AUTO) 97 K/uL (150-450); RED BLOOD CELL COUNT(AUTO) 3.17 MIL/uL (4.00-5.20); RED CELL DISTRIBUTION WIDTH 19.2 % (11.5-14.5)
[2019-12-05 07:04] LABS: EOSINOPHILS % (AUTO) 20.5 % (1.0-6.0)
[2019-12-05 07:24] VITALS: BP 160/60
[2019-12-05 07:25] LABS: CALCIUM, TOTAL 8.4 mg/dL (8.8-10.5); CREATININE 3.13 mg/dL (0.60-1.30); POTASSIUM 4.1 mmol/L (3.5-5.1)
[2019-12-05] MEDS: HEPARIN SODIUM,PORCINE 5,000 UNITS/ML VIAL SQ SCH ×2 (08:24→16:00)
[2019-12-05] MEDS: COLCHICINE 0.6 MG TABLET PO SCH ×2 (08:25→16:00)
[2019-12-05] MEDS: DOCUSATE SODIUM 250 MG CAPSULE PO SCH (08:26)
[2019-12-05] MEDS: LOSARTAN POTASSIUM 50 MG TABLET PO SCH (08:26)
[2019-12-05] MEDS: HydrALAZINE HCL 50 MG TABLET PO SCH ×2 (08:26→16:00)
[2019-12-05] MEDS: SODIUM BICARBONATE 650 MG TABLET PO SCH (08:26)
[2019-12-05] MEDS: CARVEDILOL 6.25 MG TABLET PO SCH (08:26)
[2019-12-05] MEDS: ASPIRIN 81 MG EC TABLET PO SCH (08:26)
[2019-12-05] MEDS: ISOSORBIDE MONONITRATE 60 MG ER TABLET PO SCH (08:26)
[2019-12-05] MEDS: AmLODIPine BESYLATE 5 MG TABLET PO SCH (08:27)
[2019-12-05] MEDS: PANTOPRAZOLE SODIUM 40 MG DR TABLET PO SCH (08:27)
[2019-12-05] MEDS: VITAMIN B COMP/VIT C/FOLIC ACID CAPSULE PO SCH (08:27)
[2019-12-05] MEDS: HYOSCYAMINE SULFATE 0.125 MG TAB PO SCH (08:27)
[2019-12-05 11:15] VITALS: BP 139/55
[2019-12-07] MEDS ORDERED: EPOETIN ALFA 10,000 UNITS/ML 2 ML VIAL SQ SCH (09:00)
== END 2019-12-05 17:20 | disposition home or self-care (01) | DRG 311 ==
LOC: EMS 10:30 → 5N 17:08 → 5S 12-03 16:18
PROVIDERS: ADMIT Internal Medicine; ATTEND Internal Medicine
PROC: 5A1D70Z Performance of Urinary Filtration, Intermittent, Less than 6 Hours Per Day (ICD-10-PCS; principal; 2019-12-03)
PROC: 5A1D70Z Performance of Urinary Filtration, Intermittent, Less than 6 Hours Per Day (ICD-10-PCS; 2019-12-04)
DX: I24.9 Acute ischemic heart disease, unspecified (principal); I50.31 Acute diastolic (congestive) heart failure; N18.6 End stage renal disease; I13.2 Hypertensive heart and chronic kidney disease with heart failure and with stage 5 chronic kidney disease, or end stage renal disease; E11.22 Type 2 diabetes mellitus with diabetic chronic kidney disease; E78.5 Hyperlipidemia, unspecified; I35.0 Nonrheumatic aortic (valve) stenosis; I25.10 Atherosclerotic heart disease of native coronary artery without angina pectoris; J44.9 Chronic obstructive pulmonary disease, unspecified; M19.90 Unspecified osteoarthritis, unspecified site; E78.00 Pure hypercholesterolemia, unspecified; M10.9 Gout, unspecified; D63.1 Anemia in chronic kidney disease; Z91.19 Patient's noncompliance with other medical treatment and regimen; Z88.8 Allergy status to other drugs, medicaments and biological substances; Z95.5 Presence of coronary angioplasty implant and graft; Z88.0 Allergy status to penicillin; Z79.82 Long term (current) use of aspirin; Z99.2 Dependence on renal dialysis; Z86.73 Personal history of transient ischemic attack (TIA), and cerebral infarction without residual deficits; Z91.013 Allergy to seafood; Z03.818 Encounter for observation for suspected exposure to other biological agents ruled out
CPT/HCPCS: 83605; 83615; 85379; 85384; 86140; 87040; 87340; 87635; 87804; 93005; 99291; J0360; J1200; J1644; J2270; J2405; J2765; J7030

== ENCOUNTER 2019-12-24 11:52 | Inpatient (IN) | payer MEDICARE, OTHER ==
[~2019-12-24] VITALS: Ht 157.5 cm; Wt 58.5 kg
[~2019-12-24 11:52] MED LIST changes: +COLC0.6T73 PO; +HYOS0.122 PO; +ISOS60TA4 PO; -LEVO-72 PO; +ROSU20TA23 PO; +SODI650T PO
[2019-12-24] MEDS ORDERED: IPRATROPIUM BROMIDE 0.5 MG/2.5 ML NEB SOLUTION NEB ONE (12:30)
[2019-12-24] MEDS ORDERED: NITROGLYCERIN 2% (1 GM=INCH) PACKET TP ONE (12:30)
[2019-12-24] MEDS ORDERED: MethylPREDNISolone SOD SUCC 125 MG/2 ML VIAL IVP ONE (12:30)
[2019-12-24] MEDS ORDERED: ALBUTEROL SULFATE 5 MG/ML 20 ML NEB SOLN [BULK] NEB ONE (12:30)
[2019-12-24 12:49] LABS: HEMATOCRIT 31.5 % (36-46); HEMOGLOBIN 10.3 g/dL (12.0-16.0); MEAN CORPUSCULAR HEMOGLOBIN 32.8 pg (26.0-34.0); MEAN CORPUSCULAR HGB CONC 32.8 G/dL (31.0-37.0); MEAN CORPUSCULAR VOLUME 100 fL (80-100); PLATELET COUNT (AUTO) 114 K/uL (150-450); RED BLOOD CELL COUNT(AUTO) 3.14 MIL/uL (4.00-5.20); RED CELL DISTRIBUTION WIDTH 20.1 % (11.5-14.5)
[2019-12-24 12:54] LABS: CALCIUM, TOTAL 8.8 mg/dL (8.8-10.5); CREATININE 4.22 mg/dL (0.60-1.30); POTASSIUM 4.7 mmol/L (3.5-5.1)
[2019-12-24 13:00] LABS: ALBUMIN 3.4 g/dL (3.4-5.0); BILIRUBIN,TOTAL 0.6 mg/dL (0.1-1.0); TOTAL PROTEIN, SERUM 7.2 g/dL (6.4-8.2)
[2019-12-24] MEDS ORDERED: AZITHROMYCIN 500 MG/NS 250 ML IV ONE (13:15)
[2019-12-24] MEDS ORDERED: CefTRIAXone 1 GM/DEXTROSE 50 ML IV ONE (13:15)
[2019-12-24] MEDS ORDERED: ACETAMINOPHEN 325 MG TABLET PO PRN (13:45)
[2019-12-24] MEDS ORDERED: ACETAMINOPHEN 325 MG TABLET PO ONE (13:45)
[2019-12-24] MEDS ORDERED: ONDANSETRON HCL 4 MG/2 ML VIAL IVP PRN ×2 (13:45→16:30)
[2019-12-24 13:54] LABS: BAND NEUTROPHILS % (MANUAL) 4 % (0-5); EOSINOPHILS % (MANUAL) 4 % (1-6); LYMPHOCYTES % (MANUAL) 19 % (22-44); SEGMENTED NEUTROPHILS % 73 % (40-70)
[2019-12-24] MEDS: IPRATROPIUM BROMIDE 0.5 MG/2.5 ML NEB SOLUTION NEB SCH ×3 (15:00→23:00)
[2019-12-24] MEDS: ALBUTEROL SULFATE 2.5 MG/0.5 ML NEB SOLUTION NEB SCH ×3 (15:00→23:00)
[2019-12-24 15:33] LABS: GLUCOMETER DEV NAME(LOC) PVLAB.13
[2019-12-24] MEDS ORDERED: INSULIN LISPRO 100 UNITS/ML SQ PRN (15:45)
[2019-12-24] MEDS ORDERED: DEXTROSE 50%-WATER 25 GM/50 ML SYRINGE IVP PRN (15:45)
[2019-12-24] MEDS: HydrALAZINE HCL 20 MG/ML VIAL IVP PRN (16:03)
[2019-12-24] MEDS ORDERED: BENZONATATE 100 MG CAPSULE PO PRN (16:15)
[2019-12-24] MEDS ORDERED: MAGNESIUM HYDROXIDE SUSPENSION 30 ML UDCUP PO PRN (16:30)
[2019-12-24] MEDS ORDERED: 0.9% SODIUM CHLORIDE 10 ML SYRINGE IVP PRN (16:30)
[2019-12-24] MEDS ORDERED: DOCUSATE SODIUM 100 MG CAPSULE PO PRN (16:30)
[2019-12-24] MEDS ORDERED: BISACODYL 10 MG RECTAL RECTAL SUPPOSITORY PR PRN (16:30)
[2019-12-24 17:45] LABS: INFLUENZA TYPE A NEGATIVE FOR TYPE A (NEGATIVE); INFLUENZA TYPE B NEGATIVE FOR TYPE B (NEGATIVE)
[2019-12-24] MEDS ORDERED: HEPARIN SODIUM,PORCINE 1,000 UNITS/ML VIAL ONE (18:12)
[2019-12-24] MEDS ORDERED: LIDOCAINE/PF 1% 2 ML VIAL ONE (18:12)
[2019-12-24] MEDS: PANTOPRAZOLE SODIUM 40 MG DR TABLET PO SCH (19:19)
[2019-12-24] MEDS: ALBUTEROL SULFATE/IPRATROPIUM 100-20 MCG/SPRAY 4 GM INHALER IH SCH (19:19)
[2019-12-24 22:15] VITALS: BP 161/66
[2019-12-24] MEDS: FLUTICASONE/SALMETEROL 250 MCG-50 MCG/INH DISKUS INHALER [28] IH SCH (22:18)
[2019-12-24] MEDS: ATORVASTATIN CALCIUM 40 MG TABLET PO SCH (22:18)
[2019-12-24] MEDS: HYOSCYAMINE SULFATE 0.125 MG TAB PO SCH (22:18)
[2019-12-24] MEDS: VITAMIN B COMP/VIT C/FOLIC ACID CAPSULE PO SCH (22:18)
[2019-12-24] MEDS: LACTOBACILLUS ACIDOPHILUS/BULGARICUS TABLET PO SCH (22:18)
[2019-12-24] MEDS: CARVEDILOL 6.25 MG TABLET PO SCH (22:18)
[2019-12-24] MEDS: HydrALAZINE HCL 50 MG TABLET PO SCH (22:18)
[2019-12-25 04:45] VITALS: BP 141/64
[2019-12-25] MEDS: ALBUTEROL SULFATE/IPRATROPIUM 100-20 MCG/SPRAY 4 GM INHALER IH SCH ×4 (06:00→18:00)
[2019-12-25 07:45] LABS: BASOPHILS % (AUTO) 0.7 % (0.0-2.0); HEMATOCRIT 28.2 % (36-46); HEMOGLOBIN 9.1 g/dL (12.0-16.0); LYMPHOCYTES # (AUTO) 1.2 K/uL (1.0-4.8); LYMPHOCYTES % (AUTO) 14.9 % (22.0-44.0); MEAN CORPUSCULAR HEMOGLOBIN 32.3 pg (26.0-34.0); MEAN CORPUSCULAR HGB CONC 32.2 G/dL (31.0-37.0); MEAN CORPUSCULAR VOLUME 100 fL (80-100); MONOCYTES # (AUTO) 0.6 K/uL (0.1-1.0); MONOCYTES % (AUTO) 6.9 % (2.0-9.0); NEUTROPHILS # (AUTO) 4.7 K/uL (1.8-7.7); NEUTROPHILS % (AUTO) 58.5 % (40.0-70.0); PLATELET COUNT (AUTO) 114 K/uL (150-450); RED BLOOD CELL COUNT(AUTO) 2.81 MIL/uL (4.00-5.20); RED CELL DISTRIBUTION WIDTH 19.8 % (11.5-14.5)
[2019-12-25 07:55] LABS: GLUCOMETER DEV NAME(LOC) 5S.1; GLUCOSE,POINT OF CARE 90 MG/DL (70-110)
[2019-12-25 07:58] LABS: ALBUMIN 2.9 g/dL (3.4-5.0); BILIRUBIN,TOTAL 0.6 mg/dL (0.1-1.0); CALCIUM, TOTAL 8.4 mg/dL (8.8-10.5); CREATININE 4.85 mg/dL (0.60-1.30); POTASSIUM 4.9 mmol/L (3.5-5.1); TOTAL PROTEIN, SERUM 6.5 g/dL (6.4-8.2)
[2019-12-25 08:32] VITALS: BP 183/74
[2019-12-25] MEDS: ACETAMINOPHEN 325 MG TABLET PO PRN ×2 (10:05→22:12)
[2019-12-25] MEDS: HydrALAZINE HCL 50 MG TABLET PO SCH ×3 (11:39→20:57)
[2019-12-25] MEDS: ISOSORBIDE MONONITRATE 60 MG ER TABLET PO SCH (11:39)
[2019-12-25] MEDS: HYOSCYAMINE SULFATE 0.125 MG TAB PO SCH ×2 (11:40→22:12)
[2019-12-25] MEDS: LACTOBACILLUS ACIDOPHILUS/BULGARICUS TABLET PO SCH ×2 (11:40→20:57)
[2019-12-25] MEDS: VITAMIN B COMP/VIT C/FOLIC ACID CAPSULE PO SCH (11:41)
[2019-12-25] MEDS: ASPIRIN 81 MG EC TABLET PO SCH (11:41)
[2019-12-25] MEDS: CARVEDILOL 6.25 MG TABLET PO SCH ×2 (11:41→20:57)
[2019-12-25] MEDS: PANTOPRAZOLE SODIUM 40 MG DR TABLET PO SCH (11:41)
[2019-12-25] MEDS: AmLODIPine BESYLATE 5 MG TABLET PO SCH (11:42)
[2019-12-25 11:51] VITALS: BP 137/59
[2019-12-25] MEDS: FLUTICASONE/SALMETEROL 250 MCG-50 MCG/INH DISKUS INHALER [28] IH SCH ×3 (11:54→21:00)
[2019-12-25] MEDS ORDERED: SODIUM CHLORIDE 0.9% 250 ML IV ONE (13:55)
[2019-12-25] MEDS: AZITHROMYCIN 500 MG/NS 250 ML IV SCH (14:17)
[2019-12-25 16:05] VITALS: BP 117/55
[2019-12-25] MEDS: CefTRIAXone 1 GM/DEXTROSE 50 ML IV SCH (16:15)
[2019-12-25] MEDS: ATORVASTATIN CALCIUM 40 MG TABLET PO SCH (20:57)
[2019-12-25 21:15] VITALS: BP 133/64
[2019-12-26 05:30] VITALS: BP 132/57
[2019-12-26 07:36] VITALS: BP 136/62
[2019-12-26] MEDS: HydrALAZINE HCL 50 MG TABLET PO SCH ×3 (09:39→20:40)
[2019-12-26] MEDS: CARVEDILOL 6.25 MG TABLET PO SCH ×2 (09:39→20:40)
[2019-12-26] MEDS: FLUTICASONE/SALMETEROL 250 MCG-50 MCG/INH DISKUS INHALER [28] IH SCH ×2 (09:39→20:41)
[2019-12-26] MEDS: ALBUTEROL SULFATE/IPRATROPIUM 100-20 MCG/SPRAY 4 GM INHALER IH SCH ×5 (09:39→23:45)
[2019-12-26] MEDS: AmLODIPine BESYLATE 5 MG TABLET PO SCH (09:40)
[2019-12-26] MEDS: VITAMIN B COMP/VIT C/FOLIC ACID CAPSULE PO SCH (09:40)
[2019-12-26] MEDS: LACTOBACILLUS ACIDOPHILUS/BULGARICUS TABLET PO SCH ×2 (09:40→20:39)
[2019-12-26] MEDS: ASPIRIN 81 MG EC TABLET PO SCH (09:40)
[2019-12-26] MEDS: ISOSORBIDE MONONITRATE 60 MG ER TABLET PO SCH (09:40)
[2019-12-26] MEDS: PANTOPRAZOLE SODIUM 40 MG DR TABLET PO SCH (09:40)
[2019-12-26] MEDS: HYOSCYAMINE SULFATE 0.125 MG TAB PO SCH ×2 (09:40→20:39)
[2019-12-26 11:25] VITALS: BP 134/66
[2019-12-26 11:49] LABS: HEMATOCRIT 28.6 % (36-46); HEMOGLOBIN 9.4 g/dL (12.0-16.0); MEAN CORPUSCULAR HEMOGLOBIN 32.8 pg (26.0-34.0); MEAN CORPUSCULAR HGB CONC 32.9 G/dL (31.0-37.0); MEAN CORPUSCULAR VOLUME 100 fL (80-100); PLATELET COUNT (AUTO) 127 K/uL (150-450); RED BLOOD CELL COUNT(AUTO) 2.87 MIL/uL (4.00-5.20); RED CELL DISTRIBUTION WIDTH 19.3 % (11.5-14.5)
[2019-12-26 12:15] LABS: CALCIUM, TOTAL 8.4 mg/dL (8.8-10.5); CREATININE 4.12 mg/dL (0.60-1.30)
[2019-12-26 13:11] LABS: BAND NEUTROPHILS % (MANUAL) 0 % (0-5)
[2019-12-26 13:14] LABS: EOSINOPHILS % (MANUAL) 21 % (1-6); LYMPHOCYTES % (MANUAL) 17 % (22-44); MONOCYTES % (MANUAL) 5 % (2-9); SEGMENTED NEUTROPHILS % 57 % (40-70)
[2019-12-26] MEDS: AZITHROMYCIN 500 MG/NS 250 ML IV SCH (13:58)
[2019-12-26 16:15] VITALS: BP 128/78
[2019-12-26] MEDS: CefTRIAXone 1 GM/DEXTROSE 50 ML IV SCH (16:17)
[2019-12-26] MEDS: ACETAMINOPHEN 325 MG TABLET PO PRN (16:17)
[2019-12-26 20:20] VITALS: BP 154/70
[2019-12-26] MEDS: ATORVASTATIN CALCIUM 40 MG TABLET PO SCH (20:40)
[2019-12-27] VITALS (8 sets, daily range): BP systolic 126–181; BP diastolic 55–69
[2019-12-27] MEDS: IPRATROPIUM BROMIDE 0.5 MG/2.5 ML NEB SOLUTION NEB SCH ×4 (01:50→21:09)
[2019-12-27] MEDS: ALBUTEROL SULFATE 2.5 MG/0.5 ML NEB SOLUTION NEB SCH ×4 (01:50→21:09)
[2019-12-27] MEDS: ALBUTEROL SULFATE/IPRATROPIUM 100-20 MCG/SPRAY 4 GM INHALER IH PRN ×2 (08:04→08:23)
[2019-12-27] MEDS: HydrALAZINE HCL 50 MG TABLET PO SCH ×3 (08:23→20:11)
[2019-12-27] MEDS: LACTOBACILLUS ACIDOPHILUS/BULGARICUS TABLET PO SCH ×2 (08:23→20:11)
[2019-12-27] MEDS: CARVEDILOL 6.25 MG TABLET PO SCH ×2 (08:23→20:11)
[2019-12-27] MEDS: FLUTICASONE/SALMETEROL 250 MCG-50 MCG/INH DISKUS INHALER [28] IH SCH ×2 (08:23→20:12)
[2019-12-27] MEDS: ASPIRIN 81 MG EC TABLET PO SCH (08:23)
[2019-12-27] MEDS: PANTOPRAZOLE SODIUM 40 MG DR TABLET PO SCH (08:24)
[2019-12-27] MEDS: AmLODIPine BESYLATE 5 MG TABLET PO SCH (08:24)
[2019-12-27] MEDS: VITAMIN B COMP/VIT C/FOLIC ACID CAPSULE PO SCH (08:24)
[2019-12-27] MEDS: ISOSORBIDE MONONITRATE 60 MG ER TABLET PO SCH (08:24)
[2019-12-27] MEDS: HYOSCYAMINE SULFATE 0.125 MG TAB PO SCH ×2 (08:24→20:11)
[2019-12-27] MEDS: AZITHROMYCIN 500 MG/NS 250 ML IV SCH (12:27)
[2019-12-27] MEDS: CefTRIAXone 1 GM/DEXTROSE 50 ML IV SCH (16:21)
[2019-12-27] MEDS: ATORVASTATIN CALCIUM 40 MG TABLET PO SCH (20:11)
[2019-12-28] MEDS: ALBUTEROL SULFATE 2.5 MG/0.5 ML NEB SOLUTION NEB SCH ×3 (02:00→14:00)
[2019-12-28] MEDS: IPRATROPIUM BROMIDE 0.5 MG/2.5 ML NEB SOLUTION NEB SCH ×3 (02:00→14:00)
[2019-12-28 03:58] VITALS: BP 171/63
[2019-12-28] MEDS: HydrALAZINE HCL 20 MG/ML VIAL IVP PRN (04:02)
[2019-12-28 07:41] LABS: BASOPHILS % (AUTO) 0.7 % (0.0-2.0); EOSINOPHILS % (AUTO) 9.9 % (1.0-6.0); HEMATOCRIT 26.7 % (36-46); HEMOGLOBIN 8.8 g/dL (12.0-16.0); LYMPHOCYTES # (AUTO) 1.3 K/uL (1.0-4.8); LYMPHOCYTES % (AUTO) 16.7 % (22.0-44.0); MEAN CORPUSCULAR HEMOGLOBIN 32.7 pg (26.0-34.0); MEAN CORPUSCULAR HGB CONC 32.9 G/dL (31.0-37.0); MEAN CORPUSCULAR VOLUME 99 fL (80-100); MONOCYTES # (AUTO) 0.6 K/uL (0.1-1.0); MONOCYTES % (AUTO) 7.3 % (2.0-9.0); NEUTROPHILS # (AUTO) 5.1 K/uL (1.8-7.7); NEUTROPHILS % (AUTO) 65.4 % (40.0-70.0); PLATELET COUNT (AUTO) 143 K/uL (150-450); RED BLOOD CELL COUNT(AUTO) 2.69 MIL/uL (4.00-5.20); RED CELL DISTRIBUTION WIDTH 18.8 % (11.5-14.5)
[2019-12-28 07:59] LABS: CALCIUM, TOTAL 8.7 mg/dL (8.8-10.5); CREATININE 5.59 mg/dL (0.60-1.30); POTASSIUM 4.1 mmol/L (3.5-5.1)
[2019-12-28 08:22] VITALS: BP 203/75
[2019-12-28] MEDS: VITAMIN B COMP/VIT C/FOLIC ACID CAPSULE PO SCH (08:25)
[2019-12-28] MEDS: ASPIRIN 81 MG EC TABLET PO SCH (08:25)
[2019-12-28] MEDS: PANTOPRAZOLE SODIUM 40 MG DR TABLET PO SCH (08:25)
[2019-12-28] MEDS: HYOSCYAMINE SULFATE 0.125 MG TAB PO SCH (08:26)
[2019-12-28] MEDS: LACTOBACILLUS ACIDOPHILUS/BULGARICUS TABLET PO SCH (08:26)
[2019-12-28] MEDS: FLUTICASONE/SALMETEROL 250 MCG-50 MCG/INH DISKUS INHALER [28] IH SCH (08:28)
[2019-12-28] MEDS ORDERED: SODIUM CHLORIDE 0.9% 2,000 ML ONE (08:34)
[2019-12-28] MEDS ORDERED: EPOETIN ALFA 10,000 UNITS/ML VIAL SQ SCH (09:00)
[2019-12-28] MEDS ORDERED: EPOETIN ALFA 10,000 UNITS/ML 2 ML VIAL SQ SCH (09:00)
[2019-12-28] MEDS: AZITHROMYCIN 500 MG/NS 250 ML IV SCH (13:00)
[2019-12-28] MEDS ORDERED: LIDOCAINE/PF 1% 2 ML VIAL ID PRN (13:45)
[2019-12-28 13:46] VITALS: BP 175/67
[2019-12-28] MEDS: AmLODIPine BESYLATE 5 MG TABLET PO SCH (13:55)
[2019-12-28] MEDS: CARVEDILOL 6.25 MG TABLET PO SCH (13:55)
[2019-12-28] MEDS: HydrALAZINE HCL 50 MG TABLET PO SCH (13:56)
[2019-12-28] MEDS: ISOSORBIDE MONONITRATE 60 MG ER TABLET PO SCH (13:56)
[2019-12-28] MEDS ORDERED: B CO1CAP6 PO ×2 (14:09→14:10)
[2019-12-28 15:44] VITALS: BP 166/66
[2019-12-28] MEDS ORDERED: HydrALAZINE HCL 20 MG/ML VIAL IVP ONE (15:45)
[2019-12-28] MEDS: CefTRIAXone 1 GM/DEXTROSE 50 ML IV SCH (16:00)
[2019-12-28 16:20] VITALS: BP 127/52
[2019-12-28] MEDS: ACETAMINOPHEN 325 MG TABLET PO PRN (16:21)
== END 2019-12-28 16:45 | disposition home health service (06) | DRG 291 ==
LOC: EMS 11:55 → 5S 14:17
PROVIDERS: ADMIT Internal Medicine; ATTEND Internal Medicine
PROC: 5A1D70Z Performance of Urinary Filtration, Intermittent, Less than 6 Hours Per Day (ICD-10-PCS; principal; 2019-12-25)
PROC: 5A1D70Z Performance of Urinary Filtration, Intermittent, Less than 6 Hours Per Day (ICD-10-PCS; 2019-12-28)
DX: I13.2 Hypertensive heart and chronic kidney disease with heart failure and with stage 5 chronic kidney disease, or end stage renal disease (principal); J96.20 Acute and chronic respiratory failure, unspecified whether with hypoxia or hypercapnia; J18.9 Pneumonia, unspecified organism; N18.6 End stage renal disease; I50.33 Acute on chronic diastolic (congestive) heart failure; J44.0 Chronic obstructive pulmonary disease with (acute) lower respiratory infection; J44.1 Chronic obstructive pulmonary disease with (acute) exacerbation; I16.1 Hypertensive emergency; J45.901 Unspecified asthma with (acute) exacerbation; E78.5 Hyperlipidemia, unspecified; E78.00 Pure hypercholesterolemia, unspecified; I25.10 Atherosclerotic heart disease of native coronary artery without angina pectoris; E11.21 Type 2 diabetes mellitus with diabetic nephropathy; E11.319 Type 2 diabetes mellitus with unspecified diabetic retinopathy without macular edema; K21.9 Gastro-esophageal reflux disease without esophagitis; M10.9 Gout, unspecified; D63.1 Anemia in chronic kidney disease; E11.22 Type 2 diabetes mellitus with diabetic chronic kidney disease; I35.0 Nonrheumatic aortic (valve) stenosis; Z88.0 Allergy status to penicillin; Z91.013 Allergy to seafood; Z88.8 Allergy status to other drugs, medicaments and biological substances; Z95.5 Presence of coronary angioplasty implant and graft; Z86.73 Personal history of transient ischemic attack (TIA), and cerebral infarction without residual deficits; Z79.899 Other long term (current) drug therapy; Z20.828 Contact with and (suspected) exposure to other viral communicable diseases; Z99.2 Dependence on renal dialysis
CPT/HCPCS: 71250; 84145; 87040; 87081; 87205; 87804; 93005; 93970; 94640; 94644; 97161; 99291; G0378; J0360; J0456; J0696; J0885; J1644; J2405; J2930; J3490; J3535; J7030; J7050